=== PATIENT | male | born 1965 | race Caucasian/White ===

== ENCOUNTER 2017-03-22 17:58 | Observation (INO) ==
[2017-03-22] MEDS ORDERED: Naloxone 0.4 MG/ML INJ IVP PRN (21:10)
[2017-03-22] MEDS ORDERED: Acetaminophen 325 MG TABLET PO PRN (21:10)
[2017-03-22] MEDS ORDERED: Ondansetron 4 MG/2 ML VIAL IVP PRN (21:10)
[2017-03-22] MEDS ORDERED: Nitroglycerin 0.4 MG TAB.SUBL SL PRN (21:15)
--- NOTE | 2017-03-22 21:22 | Internal Med History&Physical ---
Date of Encounter: 03/22/17 Time of Encounter: 20:15 Assessment and Plan (1) Near syncope Current visit: Yes Status: Acute 1. Will proceed with ECHO Carotid Dopplers. 2. Monitor heart rhythm on telemetry. 3. Will hold some of his BP meds as his BP is on the low side. 4. Consult Cardiology given his history of arrhythmia and ablation. 5. Cycle troponins and monitor for signs of angina. (2) Chest pain Current visit: Yes Status: Acute 1. Patient currently CP free. 2. He had chest pain 3 days ago, was admitted 2 days ago, and signed out AMA. 3. Will proceed with work-up detailed above as long as he does not sign out AMA. Qualifiers: Chest pain type: precordial pain Qualified Code(s): R07.2 - Precordial pain (3) COPD (chronic obstructive pulmonary disease) Current visit: Yes Status: Chronic 1. Continue home meds as appropriate. 2. No current exacerbation. 3. Smoking cessation well advised. Qualifiers: COPD type: emphysema Emphysema type: unspecified Qualified Code(s): J43.9 - Emphysema, unspecified (4) DVT prophylaxis Current visit: Yes Status: Acute 1. Continue home Eliquis. Internal Medicine - H&P: HPI Chief complaint: near syncope; chest pain; trasnfer from [facility] Admitted From: Hospital to Hospital Transfer Plans for Post Hospital Care: Home History of present illness: Mr. Gray is a 52 year old male who presented to [facility] ER [facility] today with complaints of lightheadedness, dizziness, near syncope, and an episode of chest pain 2 days ago. Workup was pertinent for slight elevation of troponin at [facility], and he was subsequently transferred here to [place]. I reviewed his records from [facility] and then talked with patient and his . Upon my assessment of the patient, he denies any chest pain or heaviness. However, he and his confirmed that he has had some lightheadedness and dizziness. He recently lost his father about 3 weeks ago and has been having significant anxiety and panic attacks since. He also has a history of an arrhythmia and underwent radiofrequency catheter ablation in August of this year at [facility]. Of note, patient was just hospitalized here 2 days ago for chest pain and signed out AMA. Neither he nor his volunteered this information, and I found this out on medical record review. Presently, patient denies any dizziness or lightheadedness. He denies having any palpitations. However, given his history of arrhythmia and radiofrequency ablation, I worry about cardiac source of his syncope. Nonetheless, will check echo and carotid Dopplers as well as consulting cardiology for further guidance. Patient and voiced understanding and agreed to stay for further workup. Past Med Surg Social Fam HX - Past Medical History Attestation: Yes The following information was validated with the patient. Source: patient, old records reviewed, other (records review from [facility]) Medical history: arthritis, COPD, coronary artery disease, CVA, GERD, hypertension, kidney stones, myocardial infarction, renal disease Psychiatric history: anxiety, depression - Past Surgical History Surgical History: knee replacement, other (radiofrequency catheter ablation of arrhythmia) - Social History Smoking Status: Current every day smoker Smokeless Tobacco Status: No Alcohol use: none Drug use: none Current living situation: Home, With Family Activity Level: Independent ambulation - Family History Father Living Status: Hx Family Cardiac Disorders: No Hx Family Respiratory Disorders: No Hx Family Cancer: Yes Mother Adopted: No Family Member Ethnicity: Non- Living Status: Still Living Hx Family Cardiac Disorders: Yes (HTN, Hyperlipidemia) Hx Family Cancer: Yes (Breast CA) Internal Medicine - H&P: Meds Aspirin Enteric Coated [Aspirin EC] 81 mg PO DAILY 02/14/16 [History] Atorvastatin Calcium [Lipitor] 80 mg PO HS 02/14/16 [History] Budesonide/Formoterol 160/4.5 [Symbicort 160/4.5] 2 puff IH BID 02/14/16 [ History] Omeprazole [PriLOSEC] 20 mg PO DAILY 02/14/16 [History] Tiotropium [place] [Spiriva] 1 puff IH DAILY 02/14/16 [History] Trazodone HCl 200 mg PO HS 02/14/16 [History] diazePAM [Valium] 10 mg PO TID PRN 02/14/16 [History] Albuterol Sulfate [Ventolin Hfa] 2 puff IH Q4-6H PRN 03/20/17 [History] Apixaban [Eliquis] 5 mg PO BID 03/20/17 [History] Gabapentin [Neurontin] 1,200 mg PO TID 03/20/17 [History] Lisinopril [Zestril] 20 mg PO DAILY 03/20/17 [History] Nitroglycerin [Nitrostat] 0.4 mg SL Q5M PRN 03/20/17 [History] Tizanidine HCl 4 mg PO TID 03/20/17 [History] Topiramate [Topamax] 25 mg PO BID 03/20/17 [History] cloNIDine HCl [CloNIDine HCl] 0.1 mg PO TID 03/20/17 [History] Fluticasone/Vilanterol [Breo Ellipta 100-25 Mcg INH] 1 each IH DAILY 03/22/17 [ History] 3 Allergy/AdvReac Type Severity Reaction Status Date / Time ketorolac [From Toradol] Allergy Itching Verified 03/19/17 22:20 Sulfa (Sulfonamide Allergy Itching Verified 03/19/17 22:20 Antibiotics) tramadol Allergy Itching Verified 03/19/17 22:20 - Constitutional Constitutional: no chills, no fever(s), no night sweats - EENT Eyes: no blurry vision, no change in vision Ears: no ear pain, no tinnitus Nose, mouth and throat: no nasal congestion, no sinus pressure, no sore throat - Cardiovascular Cardiovascular ROS IM: chest pain, dyspnea, dyspnea on exertion, lightheadedness , palpitations, syncope (near syncope), no diaphoresis - Respiratory Respiratory: dyspnea, dyspnea on exertion, no cough, no hemoptysis, no chest congestion - Gastrointestinal Gastrointestinal: no abdominal pain, no diarrhea, no hematemesis, no hematochezia, no melena, no vomiting - Genitourinary Genitourinary ROS male: no dysuria, no flank pain, no hematuria - Musculoskeletal Musculoskeletal ROS IM: no arthralgias, no back pain - Integumentary Integumentary IM: no rash, no jaundice - Neurological Neurological ROS: dizziness, no focal weakness, no frequent falls, no headache(s ), no vertigo - Psychiatric Psychiatric: anxiety, panic attacks, no depression - Endocrine Endocrine IM: no polydipsia, no polyuria - Hematologic/Lymphatic Hematologic/Lymphatic: easy bruising - Allergic/Immunologic Allergic/Immunologic: wheezing, no GI upset with certain foods - Constitutional Vitals: Temp Pulse Resp BP Pulse Ox 97.9 F 82 16 120/73 93 03/22/17 20:23 03/22/17 20:23 03/22/17 20:23 03/22/17 20:23 03/22/17 20:23 General appearance: Present: A&O X 3, no acute distress, underweight - Head Head exam: Present: atraumatic, normal inspection - Expanded Head Exam Head exam expanded: Absent: abrasion, contusion, general tenderness - Eye Eye exam: Present: EOMI, PERRL. Absent: scleral icterus Pupils: Present: normal accommodation - ENT ENT exam: Present: mucous membranes dry, normal exam - Neck Neck exam general surgery: Present: full ROM, supple. Absent: lymphadenopathy, tenderness - Expanded Neck Exam Neck exam: Absent: carotid bruit - Respiratory Respiratory exam: Present: CTAB. Absent: chest wall tenderness, rales, respiratory distress, rhonchi, wheezes - Cardiovascular Cardiovascular exam: Present: RRR, +S1, +S2. Absent: diastolic murmur, systolic murmur - GI/Abdominal GI/Abdominal exam: Present: normal bowel sounds, soft. Absent: hepatomegaly, mass, splenomegaly, tenderness - Extremities Exam Extremities exam: Present: full ROM, warm, radial pulses palpable and symmetrical. Absent: calf tenderness, joint swelling, pedal edema - Back Exam Back exam: Present: normal inspection. Absent: CVA tenderness (L), CVA tenderness (R) - Neurological Exam Neurological exam: Present: alert, CN II-XII intact, oriented X3, no focal deficits - Psychiatric Psychiatric exam: Present: anxious. Absent: depressed - Skin Skin exam: Present: dry, warm. Absent: rash Internal Med - H&P Results - Labs Labs: I reviewed labs from [facility] and pertinent labs are below: WBC 8.4 Hgb 15.4 Hct 43.7 Plt 294 Sodium 140 Potassium 4.1 Chloride 104 CO2 27 BUN 16 Creatinine 1.29 Troponin 0.313 - EKG Data -: EKG Interpreted by Myself (sinus tachycardia; npo acute ST-T changes -- [facility] EKG)
[2017-03-22] MEDS: *HR* Morphine 2 MG/ML SYRINGE IVP PRN (22:10)
[2017-03-22] MEDS: 0.9 % Sodium Chloride 1,000 ML IVC SCH (22:17)
[2017-03-22] MEDS ORDERED: APIXABAN 5 MG TABLET PO ONE (22:38)
[2017-03-22] MEDS ORDERED: Gabapentin 400 MG CAPSULE PO ONE (22:41)
[2017-03-22] MEDS ORDERED: Topiramate 25 MG TABLET PO SCH (22:45)
[2017-03-22] MEDS: diazePAM 10 MG TABLET PO PRN (22:58)
[2017-03-22 23:27] LABS: Basophils % 0.3 %; Hematocrit 44.2 % (37.5-50.1); Hemoglobin 14.9 g/dL (12.9-16.9); Immature Granulocytes % 0.3 % (0-4); Lymphocytes # 0.5 K/mcL (0.6-4.6); Lymphocytes % 7.7 %; Mean Corpuscular HGB Conc 33.7 g/dL (31.6-35.5); Mean Corpuscular Hemoglobin 30.3 pg (28.0-33.3); Monocytes # 0.2 K/mcL (0.0-1.3); Monocytes % 2.8 %; Neutrophils # 5.4 K/mcL (1.6-8.9); Platelet Count 286 K/mcL (140-400); Red Blood Count 4.91 M/mcL (4.19-5.50); Segmented Neutrophils % 88.9 %
[2017-03-22 23:32] LABS: INR 1.2; Prothrombin Time 12.5 Seconds (9.4-12.1)
[2017-03-22 23:35] LABS: Activated Partial Thrombo Time 38.9 Seconds (26.0-36.0)
[2017-03-22 23:42] LABS: Alanine Aminotransferase 12 Units/L (0-55); Albumin 3.6 g/dL (3.5-5.0); Albumin/Globulin Ratio 1.1 (1.1-2.2); Alkaline Phosphatase 57 Units/L (38-126); Aspartate Amino Transferase 22 Units/L (5-34); BUN/Creatinine Ratio 16 (6-26); Bilirubin,Total 0.4 mg/dL (0.2-1.2); Blood Urea Nitrogen 18 mg/dL (8-26); Calcium 9.1 mg/dL (8.6-10.8); Carbon Dioxide 24 mEq/L (19-29); Chloride 104 mEq/L (98-109); Globulin 3.2 g/dL (2.4-3.5); Glucose 195 mg/dL (70-99); Magnesium 2.1 mg/dL (1.6-2.6); Osmolality,Calculated 295 (280-300); Potassium 4.1 mEq/L (3.5-4.5); Sodium 139 mEq/L (136-145); Total Protein 6.8 g/dL (6.0-8.3); eGFR For African Americans > 60 (> 60); eGFR For Non-African Americans > 60 (> 60)
[2017-03-23] MEDS: *HR* HYDROcodone/Acet 5/325 mg TABLET PO PRN ×4 (01:47→22:03)
[2017-03-23 04:35] LABS: Chol/HDL Ratio 3.7 (0-4.9)
[2017-03-23] MEDS: *HR* Morphine 2 MG/ML SYRINGE IVP PRN ×2 (06:22→19:48)
[2017-03-23] MEDS: Tiotropium 18 MCG inhalation IH SCH (08:30)
[2017-03-23] MEDS: Budesonide/Formoterol 160/4.5 MDI IH SCH ×2 (08:30→21:31)
[2017-03-23] MEDS: diazePAM 10 MG TABLET PO PRN ×3 (08:39→21:52)
[2017-03-23] MEDS: Gabapentin 400 MG CAPSULE PO SCH ×3 (08:40→21:51)
[2017-03-23] MEDS: APIXABAN 5 MG TABLET PO SCH ×2 (08:40→21:52)
[2017-03-23] MEDS: Topiramate 25 MG TABLET PO SCH ×2 (08:40→21:52)
[2017-03-23] MEDS: Aspirin Enteric Coated 81 MG Tablet PO SCH (08:40)
[2017-03-23] MEDS ORDERED: Topiramate 25 MG TABLET PO SCH (09:00)
[2017-03-23] MEDS: (Breo Ellipta 100-25 Mcg Inh) IH SCH (10:59)
[2017-03-23] MEDS: 0.9 % Sodium Chloride 1,000 ML IVC SCH (12:21)
--- NOTE | 2017-03-23 12:53 | Cardiology Consult Note ---
Date of Encounter: 03/23/17 Time of Encounter: 12:30 Assessment and Plan (1) Chest pain Current Visit: Yes Status: Acute Mild troponin elevation (x1) of unclear significance. Subsequent troponin negative x2. No ischemic ECG changes. Chest pain is atypical--reproducible upon exam. Patient reports "panic attacks" and anxiety due to passing of father and increased stress at home. Recent admission on 03/20/17 at [facility] (left AMA), [facility] ED admission on 03/21/17, and [facility] ED on 03/22 with transfer to [facility]. Recent negative nuclear stress test in November 2016 at [facility] and negative nuclear stress at [facility] January 2016. TTE January 2016 shows preserved LVEF with normal wall motion. Echocardiogram completed this AM, results pending. Anticipate sign-off if no significant findings on echo. No further cardiac testing warranted at this time. 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 No WPW pattern noted on ECG today. Discussion w patient/family: The assessment and plan as outlined above was discussed with the patient and/or family members who expressed understanding and agreement. All questions were answered. Thank you for involving us in the care of your patient. Please call with any questions. The patient will be discussed and reviewed with Dr. Linus Medina; changes to be made accordingly. History of Present Illness Consult date: 03/23/17 Requesting physician: Terrell Ricketts Consult reason: Chest pain, hx of ablation Chief complaint: Chest pain History of present illness: Mr. Gray is a 52 year old male with PMHx significant for WPW s/p RF ablation , COPD, chronic back pain, HTN, tobacco abuse, and PAF (Eliquis) who presented to [facility] as transfer from [facility] due to chest pain. Of note, multiple recent ED admissions at [facility] and outside hospitals for similar symptoms. Presents with multiple non-specific complaints over the past several days. Reports constant chest pain and "whole body pain." Chest discomfort is reproducible in nature. He notes that he has had multiple panic attacks due to passing of his father. Past Med Surg Social Fam HX - Past Medical History Attestation: Yes The following information was validated with the patient. Source: patient Medical history: arthritis, atrial fibrillation, COPD, coronary artery disease, CVA, GERD, hypertension, kidney stones, myocardial infarction, renal disease Psychiatric history: anxiety, depression - Past Surgical History Surgical History: knee replacement, other (radiofrequency catheter ablation of arrhythmia-WPW) - Social History Smoking Status: Current every day smoker Packs per day: 3-4 cigarettes/day Smokeless Tobacco Status: No Alcohol use: none Drug use: none - Family History Father Living Status: Hx Family Cardiac Disorders: No Hx Family Respiratory Disorders: No Hx Family Cancer: Yes Mother Adopted: No Family Member Ethnicity: Non- Living Status: Still Living Hx Family Cardiac Disorders: Yes (HTN, Hyperlipidemia) Hx Family Cancer: Yes (Breast CA) Medications and Allergies Aspirin Enteric Coated [Aspirin EC] 81 mg PO DAILY 02/14/16 [History] Atorvastatin Calcium [Lipitor] 80 mg PO HS 02/14/16 [History] Budesonide/Formoterol 160/4.5 [Symbicort 160/4.5] 2 puff IH BID 02/14/16 [ History] Omeprazole [PriLOSEC] 20 mg PO DAILY 02/14/16 [History] Tiotropium [place] [Spiriva] 1 puff IH DAILY 02/14/16 [History] Trazodone HCl 200 mg PO HS 02/14/16 [History] diazePAM [Valium] 10 mg PO TID PRN 02/14/16 [History] Albuterol Sulfate [Ventolin Hfa] 2 puff IH Q4-6H PRN 03/20/17 [History] Apixaban [Eliquis] 5 mg PO BID 03/20/17 [History] Gabapentin [Neurontin] 1,200 mg PO TID 03/20/17 [History] Lisinopril [Zestril] 20 mg PO DAILY 03/20/17 [History] Nitroglycerin [Nitrostat] 0.4 mg SL Q5M PRN 03/20/17 [History] Tizanidine HCl 4 mg PO TID 03/20/17 [History] Topiramate [Topamax] 25 mg PO BID 03/20/17 [History] cloNIDine HCl [CloNIDine HCl] 0.1 mg PO TID 03/20/17 [History] Fluticasone/Vilanterol [Breo Ellipta 100-25 Mcg INH] 1 each IH DAILY 03/22/17 [ History] 3 Allergy/AdvReac Type Severity Reaction Status Date / Time ketorolac [From Toradol] Allergy Itching Verified 03/19/17 22:20 Sulfa (Sulfonamide Allergy Itching Verified 03/19/17 22:20 Antibiotics) tramadol Allergy Itching Verified 03/19/17 22:20 All Systems Review: A 10-system review of systems was performed and is negative for pertinent findings except as documented above in the HPI. - Cardiovascular Cardiovascular: as per HPI Physical Examination Vital Signs, Last 4 Hours Temp Pulse Resp BP Pulse Ox 03/23/17 12:16 97.3 F L 66 16 151/99 91 General: Conversant, No Apparent Distress HEENT: Atraumatic, Normocephaly, Mucus Membranes Moist Cardiac: Reg Rate and Rhythm, Normal S1 and S2 Lungs: Normal Breath Sounds Neuro: Alert and responsive Abdomen: Soft Skin: No rashes noted on visualized skin Musculoskeletal: No Chest Wall Tenderness Extremities: No Edema, Normal Pulses Results 03/22/17 22:37 03/22/17 22:37 Lab Results 03/22/17 03/22/17 03/22/17 22:37 22:37 22:37 WBC 6.1 Hgb 14.9 Hct 44.2 Plt Count 286 INR 1.2 APTT 38.9 H Sodium 139 Potassium 4.1 Chloride 104 Carbon Dioxide 24 BUN 18 Creatinine 1.13 Glucose 195 H Calcium 9.1 Magnesium 2.1 Total Bilirubin 0.4 AST 22 ALT 12 Alkaline Phosphatase 57 Troponin I 03/22/17 03/23/17 03/23/17 22:37 03:38 08:49 WBC Hgb Hct Plt Count INR APTT Sodium Potassium Chloride Carbon Dioxide BUN Creatinine Glucose Calcium Magnesium Total Bilirubin AST ALT Alkaline Phosphatase Troponin I 0.06 H* 0.03 0.02 - Imaging and Cardiology Stress Test: report reviewed Echo: report reviewed - EKG Interpretation EKG results cardiology: personally reviewed Consult Discharge Plan - Plan Referrals: Ivone Roberto MD [Primary Care Provider] -
[2017-03-23] MEDS: Lisinopril 20 MG TABLET PO SCH (13:15)
[2017-03-23] MEDS ORDERED: Ondansetron 4 MG/2 ML VIAL IVP ONE (13:27)
[2017-03-23] MEDS ORDERED: Ibuprofen 800 MG TABLET PO ONE (13:28)
--- NOTE | 2017-03-23 16:37 | Internal Med Progress Note ---
Date of Encounter: 03/23/17 Time of Encounter: 16:00 - Assessment and plan (1) Near syncope Current Visit: Yes Status: Acute Assessment and plan: Echo completed. Carotids results pending. Pt denies chest pain or dizziness but reports global headache for 3 days. Cardiology has seen pt and recommend no further cardiac testing at this time. Troponins were negative, EKG was normal sinus without ischemic changes, patient had negative stress in Nov, 2016 at [facility] and also a negative stress here in January,. TTE in January, shows preserved ejection fraction with normal wall motion. Patient is having increased stress due to recent passing of father. We will monitor overnight. 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 Continue at home. (3) Hypertension Current Visit: Yes Status: Acute Assessment and plan: Chronic. Continue home medications. Monitor here. Hydralazine when necessary Qualifiers: Hypertension type: unspecified Qualified Code(s): I10 - Essential (primary ) hypertension (4) HLD (hyperlipidemia) Current Visit: Yes Status: Acute Assessment and plan: Chronic. Continue home medications. Qualifiers: Hyperlipidemia type: unspecified Qualified Code(s): E78.5 - Hyperlipidemia , unspecified (5) Chest pain Current Visit: Yes Status: Acute Assessment and plan: Plan as above for near syncope. Qualifiers: Chest pain type: precordial pain Qualified Code(s): R07.2 - Precordial pain (6) COPD (chronic obstructive pulmonary disease) Current Visit: Yes Status: Chronic Assessment and plan: No acute exacerbation. Lungs are clear and diminished throughout. Patient is still smoking. Continue home medications. Nebulizers as needed. Qualifiers: COPD type: emphysema Emphysema type: unspecified Qualified Code(s): J43.9 - Emphysema, unspecified (7) DVT prophylaxis Current Visit: Yes Status: Acute Assessment and plan: Pain patient is ambulatory. Observation status. (8) Headache Current Visit: Yes Status: Acute Assessment and plan: Patient has diffuse global headache that he has had for 3 days. He states that he got a CAT scan at [facility], I was unable to locate the results. Will repeat here. He reports nausea, no vision changes no photo or phonophobia. He is allergic to Toradol and tramadol. He has had Zofran and Benadryl and Motrin without relief, he has just been given a Fioricet. He will be offered and Imitrex later tonight if he does not really see freely from the Fioricet. Will wait on CT results. Qualifiers: Headache type: unspecified Headache chronicity pattern: acute headache Intractability: intractable Qualified Code(s): R51 - Headache - Time Spent With Patient less than 15 minutes - Subjective Interval history: Patient was seen and examined at 1600. He is resting quietly in a darkened room. He reports severe global headache they set for 3 days. He states that he had a head CT at [facility] yesterday, I was unable to find the results to the CT and giant stack of papers that was sent. I will send him for another. Pain medications that have been offered today have not relieved pain. He denies chest pain. He was admitted here 3 days ago, he signed out AMA because no one came into his room. He then went to [facility] for evaluation, possibly signed out AMA from [facility], as well. Then went to [facility] for evaluation, was sent back here. - Constitutional Vitals: Temp Pulse Resp BP Pulse Ox 98.0 F 77 16 117/69 92 03/23/17 15:06 03/23/17 15:06 03/23/17 15:06 03/23/17 15:06 03/23/17 15:06 General appearance: Present: A&O X 3, no acute distress, underweight - Head Head exam: Present: atraumatic, normal inspection, normocephalic - Eye Eye exam: Present: conjuntiva pink, sclera anicteric - Neck Neck exam general surgery: Present: normal inspection, supple, trachea midline. Absent: lymphadenopathy - Respiratory Respiratory exam: Present: CTAB. Absent: accessory muscle use, rales, rhonchi, wheezes - Cardiovascular Cardiovascular exam: Present: RRR, +S1, +S2. Absent: diastolic murmur, gallop, rubs, systolic murmur - GI/Abdominal GI/Abdominal exam: Present: normal bowel sounds, soft, no peritoneal signs. Absent: distended, hepatomegaly, tenderness - Extremities Exam Extremities exam: Present: warm, radial pulses palpable and symmetrical. Absent : calf tenderness, cyanotic, pedal edema - Neurological Exam Neurological exam: Present: alert, oriented X3, no focal deficits. Absent: pronater drift, facial droop, speech deficit - Skin Skin exam: Present: dry, intact, normal color, warm. Absent: rash Internal Medicine: Result - Labs CBC & Chem 7: 03/22/17 22:37 03/22/17 22:37 Labs: Short CBC 03/22/17 Range/Units 22:37 WBC 6.1 (4.3-11.1) K/mcL Hgb 14.9 (12.9-16.9) g/dL Hct 44.2 (37.5-50.1) % Plt Count 286 (140-400) K/mcL Neutrophils # 5.4 (1.6-8.9) K/mcL BMP 03/22/17 22:37 Sodium 139 Potassium 4.1 Chloride 104 Carbon Dioxide 24 BUN 18 Creatinine 1.13 Glucose 195 H Calcium 9.1 Cardiac Enzymes 03/22/17 03/23/17 03/23/17 Range/Units 22:37 03:38 08:49 Troponin I 0.06 H* 0.03 0.02 (0-0.03) ng/mL Liver Function 03/22/17 Range/Units 22:37 Total Bilirubin 0.4 (0.2-1.2) mg/dL AST 22 (5-34) Units/L ALT 12 (0-55) Units/L Alkaline Phosphatase 57 (38-126) Units/L Albumin 3.6 (3.5-5.0) g/dL - ABG Interpretation ABG results: PT/INR, D-dimer PT 12.5 Seconds (9.4-12.1) H 03/22/17 22:37 - Impressions Impressions Echocardiogram 03/22/17 21:10 Impressions: LVEF 60-65%. Normal LV chamber size, wall thickness and function. Normal left ventricular diastolic function. Atypical septal motion of unclear etiology. Normal right ventricular structure and function. No evidence of pulmonary hypertension. No significant valvular dysfunction. Left Ventricular Wall Motion: Rest Echo Findings All wall segments showed normal motion. Findings: Study Quality * Technically adequate exam. ECG Findings * Normal sinus rhythm. Left Ventricle * LVEF 60-65%. * Normal LV chamber size, wall thickness and function. * Normal left ventricular diastolic function. * Atypical septal motion of unclear etiology. Right Ventricle * Normal right ventricular structure and function. Left Atrium * Mildly dilated left atrium. Right Atrium * Normal right atrial size. Interatrial Septum * Interatrial septum not well evaluated. Aortic Valve * No aortic stenosis. * No aortic regurgitation. * Aortic valve not well visualized. Mitral Valve * Mildly thickened mitral valve leaflets. * Trace mitral regurgitation. * No mitral stenosis. Tricuspid Valve * Normal tricuspid valve structure and function. * Trace tricuspid regurgitation. * No evidence of pulmonary hypertension. Pulmonic Valve * Normal pulmonic valve structure and function. * No pulmonic regurgitation. Aorta * Normally sized aortic root. Pericardium * The pericardium appears normal. IVC * Normal IVC dimensions and inspiratory collapse. Pulmonary Artery * Normal visualized portions of the main pulmonary artery. Chest X-Ray 03/22/17 21:47 IMPRESSION: No acute abnormality detected. D/ / Brady Davenport MD / Brady Davenport MD Interpreting Provider: Brady Davenport MD Consult Discharge Plan - Plan Referrals: Ivone Roberto MD [Primary Care Provider] -
[2017-03-23] MEDS ORDERED: SUMAtriptan succinate 25 MG TABLET PO ONE (16:45)
[2017-03-23] MEDS ORDERED: Acetaminophen/Butalbital/CaffeineTABLET PO ONE (16:45)
--- NOTE | 2017-03-23 21:39 | Carotid Imaging Report ---
Carotid Duplex Patient Name:Iftikhar Gray Order Number:[id number] Procedure Date:03/23/2017 Date:1965Age:52 yrs Gender:Male Lt BP:123 / 75 mmHg Rt.BP:117 / 69 mmHgHeart Rate: Location:[facility] Room #: Director Speech And Hearing:Bob Montague, RD, RVT Referring MD:Terrell Ricketts MD Reading MD:Azael Salazar MD , FACS Primary Indications:Occlusion and stenosis of carotid artery without mention of cerebral infarction Risk Factors Yes/No Smoking Current Impressions: Findings: Bilateral carotid systems have nonstenotic plaque. Findings Carotid Duplex: Right: The right proximal common carotid artery has a PSV of 97 cm/s and a EDV of 33 cm/s. The right mid common carotid artery has a PSV of 89 cm/s and a EDV of 28 cm/s. The right distal common carotid artery has a PSV of 83 cm/s and a EDV of 29 cm/s. The right bifurcation has a PSV of 70 cm/s and a EDV of 25 cm/s. The right proximal internal carotid artery has a PSV of 97 cm/s and a EDV of 35 cm/s. There is smooth homogeneous plaque. The right mid internal carotid artery has a PSV of 107 cm/s and a EDV of 42 cm/s. There is smooth homogeneous plaque. The right distal internal carotid artery has a PSV of 114 cm/s and a EDV of 40 cm/s. There is smooth homogeneous plaque. The right eca has a PSV of 96 cm/s and a EDV of 26 cm/s. The right vertebral artery has a PSV of 53 cm/s and a EDV of 9 cm/s. Left: The left proximal common carotid artery has a PSV of 115 cm/s and a EDV of 31 cm/s. The left mid common carotid artery has a PSV of 121 cm/s and a EDV of 36 cm/s. The left distal common carotid artery has a PSV of 94 cm/s and a EDV of 31 cm/s. The left bifurcation has a PSV of 65 cm/s and a EDV of 22 cm/s. The left proximal internal carotid artery has a PSV of 83 cm/s and a EDV of 31 cm/s. There is smooth homogeneous plaque. The left mid internal carotid artery has a PSV of 97 cm/s and a EDV of 42 cm/s. There is smooth homogeneous plaque. The left distal internal carotid artery has a PSV of 97 cm/s and a EDV of 46 cm/s. There is smooth homogeneous plaque. The left eca has a PSV of 84 cm/s and a EDV of 20 cm/s. The left vertebral artery has a PSV of 86 cm/s and a EDV of 34 cm/s. Prior Study: No change compared to prior study dated: 12/05/2015. Carotid Results Right PSV EDV Assessment Proximal CCA 97 33 Normal Mid CCA 89 28 Normal Distal CCA 83 29 Normal Bifurcation 70 25 Normal Proximal ICA 97 35 Non Stenotic Plaque Mid ICA 107 42 Non Stenotic Plaque Distal ICA 114 40 Non Stenotic Plaque ECA 96 26 Normal Vertebral Artery 53 9 Normal Left PSV EDV Assessment Proximal CCA 115 31 Normal Mid CCA 121 36 Normal Distal CCA 94 31 Normal Bifurcation 65 22 Normal Proximal ICA 83 31 Non Stenotic Plaque Mid ICA 97 42 Non Stenotic Plaque Distal ICA 97 46 Non Stenotic Plaque ECA 84 20 Normal Vertebral Artery 86 34 Normal Ratio's Right ICA/CCA Ratio: 1.28 ICA/CCA Values: 114/89 Left ICA/CCA Ratio: 0.80 ICA/CCA Values: 97/121 Updated by Azael Salazar MD, FACS on 03/23/2017 9:33:48 PM Azael Salazar MD electronically signed on 03/23/2017 9:34:13 PM with status of Final
[2017-03-23] MEDS ORDERED: Topiramate 25 MG TABLET PO ONE (22:42)
[2017-03-24] MEDS: *HR* Morphine 2 MG/ML SYRINGE IVP PRN ×2 (02:13→06:58)
[2017-03-24] MEDS: Acetaminophen/Butalbital/CaffeineTABLET PO PRN ×2 (02:13→08:17)
[2017-03-24] MEDS: *HR* HYDROcodone/Acet 5/325 mg TABLET PO PRN ×3 (03:54→14:18)
[2017-03-24] MEDS: diazePAM 10 MG TABLET PO PRN ×2 (04:00→12:25)
[2017-03-24] MEDS: 0.9 % Sodium Chloride 1,000 ML IVC SCH (04:03)
[2017-03-24] MEDS: Budesonide/Formoterol 160/4.5 MDI IH SCH (07:40)
[2017-03-24] MEDS: Tiotropium 18 MCG inhalation IH SCH (07:40)
[2017-03-24] MEDS: Aspirin Enteric Coated 81 MG Tablet PO SCH (08:17)
[2017-03-24] MEDS: Topiramate 25 MG TABLET PO SCH (08:17)
[2017-03-24] MEDS: Gabapentin 400 MG CAPSULE PO SCH (08:17)
[2017-03-24] MEDS: Lisinopril 20 MG TABLET PO SCH (08:17)
[2017-03-24] MEDS: APIXABAN 5 MG TABLET PO SCH (08:17)
[2017-03-24] MEDS: (Breo Ellipta 100-25 Mcg Inh) IH SCH (08:17)
[2017-03-24 11:39] VITALS: BP 115/69
--- NOTE | 2017-03-24 14:31 | Discharge Summary ---
Date of Encounter: 03/24/17 Time of Encounter: 14:20 - Discharge Diagnosis (1) Near syncope Priority: Primary Status: Acute Comments: Patient denies any more episodes of dizziness, lightheadedness, or nursing to be. He has since denied chest pain since arrival. Patient initially has some slight elevation of troponin and was transferred here for evaluation. Troponin has returned to normal. Bilateral carotids have nonstenotic plaque. Echocardiogram shows LVEF of 60-65% atypical septal motion of unclear etiology, no significant valvular dysfunction. Head CT is negative for any acute changes. EKG was normal sinus rhythm with no ischemic EKG changes. Patient was here for admission on 91 and left AMA, he went to [facility] on 91, unclear. Left there AMA as well, is at [facility] ED on 91 and was transferred here. Patient had TTEN January, that showed preserved LVEF with normal wall motion. Cardiology evaluated patient and recommended no further cardiac testing. Patient reports recent panic attacks and anxiety due to passing of his father, as well as increased stress at home. Patient's perception of near syncope could be related to this. Patient has been okay here and will follow up with primary care for follow-up and for any needed medication adjustments. (2) Tobacco dependence Priority: Secondary Status: Chronic Comments: Patient states he is not ready to quit smoking at this time. (3) Hypertension Priority: Secondary Status: Chronic Comments: Chronic. Blood pressure has been well controlled in inpatient setting. Continue home medication regimen. Qualifiers: Hypertension type: unspecified Qualified Code(s): I10 - Essential (primary ) hypertension (4) HLD (hyperlipidemia) Priority: Secondary Status: Chronic Comments: Chronic. Lipid panel results are within normal limits. Continue statin. Qualifiers: Hyperlipidemia type: unspecified Qualified Code(s): E78.5 - Hyperlipidemia , unspecified (5) Chest pain Priority: Secondary Status: Acute Comments: Patient denies any chest pain to me. Per cardiology exam, pain was reproducible with palpation. He denies cough, shortness of breath. Cardiac exam is negative. Cardiology has signed off. Qualifiers: Chest pain type: precordial pain Qualified Code(s): R07.2 - Precordial pain (6) COPD (chronic obstructive pulmonary disease) Priority: Secondary Status: Chronic Comments: No acute exacerbation. Continue inhalers at home. Patient denies new cough above baseline. Lungs are clear and diminished throughout. Qualifiers: COPD type: emphysema Emphysema type: unspecified Qualified Code(s): J43.9 - Emphysema, unspecified (7) DVT prophylaxis Priority: Secondary Status: Acute Comments: Patient takes a la [employer]. (8) Headache Priority: Secondary Status: Acute Comments: Head CT negative. Patient does have some mild mucoperiosteal thickening of the ethmoid air sinuses. There is no facial or forehead tenderness with palpation. Headache was relieved with Fiorcet. Patient will follow with primary care for prescription. Qualifiers: Headache type: unspecified Headache chronicity pattern: acute headache Intractability: intractable Qualified Code(s): R51 - Headache - Discharge Medications Prescriptions: Acetaminophen/Butalbital/Caffe [Fioricet] 1 each PO DAILY PRN #4 tablet PRN Reason: Headache Home Medications: Aspirin Enteric Coated [Aspirin EC] 81 mg PO DAILY 02/14/16 [History] Atorvastatin Calcium [Lipitor] 80 mg PO HS 02/14/16 [History] Budesonide/Formoterol 160/4.5 [Symbicort 160/4.5] 2 puff IH BID 02/14/16 [ History] Omeprazole [PriLOSEC] 20 mg PO DAILY 02/14/16 [History] Tiotropium Freeman [Spiriva] 1 puff IH DAILY 02/14/16 [History] Trazodone HCl 200 mg PO HS 02/14/16 [History] diazePAM [Valium] 10 mg PO TID PRN 02/14/16 [History] Albuterol Sulfate [Ventolin Hfa] 2 puff IH Q4-6H PRN 03/20/17 [History] Apixaban [Eliquis] 5 mg PO BID 03/20/17 [History] Gabapentin [Neurontin] 1,200 mg PO TID 03/20/17 [History] Lisinopril [Zestril] 20 mg PO DAILY 03/20/17 [History] Nitroglycerin [Nitrostat] 0.4 mg SL Q5M PRN 03/20/17 [History] Tizanidine HCl 4 mg PO TID 03/20/17 [History] Topiramate [Topamax] 25 mg PO BID 03/20/17 [History] cloNIDine HCl [CloNIDine HCl] 0.1 mg PO TID 03/20/17 [History] Fluticasone/Vilanterol [Breo Ellipta 100-25 Mcg INH] 1 each IH DAILY 03/22/17 [ History] Acetaminophen/Butalbital/Caffe [Fioricet] 1 each PO DAILY PRN #4 tablet [Rx] Allergies/Adverse Reactions: 3 Allergy/AdvReac Type Severity Reaction Status Date / Time ketorolac [From Toradol] Allergy Itching Verified 03/19/17 22:20 Sulfa (Sulfonamide Allergy Itching Verified 03/19/17 22:20 Antibiotics) tramadol Allergy Itching Verified 03/19/17 22:20 Procedures/tests Complete & Pending: Procedures Performed prior 72 hours Category Date Time Status CT head/brain wo con [CT] Cat Scan 03/23/17 17:30 Draft ECG 12 lead ECG [ECG] AM 0600 Y 03/23/17 06:00 Ordered EV carotid duplex imaging BI Routine Y 03/22/17 21:10 Completed EV echocardiogram Routine Y 03/22/17 21:10 Completed Date of admission: 03/22/17 19:10 Primary care physician: Cat Suazo Consults: 03/22/17 21:14 Consult to Physician [CONS] Routine Consulting Provider: Linus Medina Reason for Consult: near syncope; chest pain; s/p radiofrequency ablation Call Completed: No Discharging clinician: Josephine Phelps Anticipated date of discharge: 03/24/17 - Patient Status Disposition: Home, Self-Care Condition: Good Functional capacity at discharge: independent ambulation Overall status at discharge: patient is back to baseline - Discharge Instructions Follow Up With: Ivone Roberto MD [Primary Care Provider] - Additional Instructions: Follow up with PCP in the next 7-10 days for follow up visit. Return to the ER as needed for any other problems or concerns or if your symptoms return or worsen. Resume your home medications and activities as tolerated. Follow up with your PCP to return to work. - Diet and Activity Activity: return to work once cleared by your PCP/specialist Diet: advance to your usual diet Hospital course: Mr. Gray is a 52 year old male with past medical history of CVA, right mario- anopsia, left-sided weakness, cervical arthritis with myelopathy with TIAs, COPD , anxiety, tobacco dependence, hypertension, hyperlipidemia, Dominci-Parkinson- White with ablation. presented to [facility] today with complaints of lightheadedness, dizziness, near syncope, and an episode of chest pain 2 days ago. Workup was pertinent for slight elevation of troponin at [facility], and he was subsequently transferred here to [place]. Patient denies any chest pain, however he did have a headache that was finally relieved with Fiorcet. Echocardiogram showed preserved function with no valvular dysfunction. Carotids showed nonstenotic plaque throughout. Head CT was negative for any acute intracranial abnormality. Patient was at [facility] in Nov, 2016 had a negative stress test, as well as a negative stress test here in January,. Patient was seen by cardiology and no further cardiac testing was warranted. Chest pain was reproducible on exam. He will need follow-up with cardiology in the office for follow-up. Patient has a history of WPW with ablation at [facility] in August,. No WPW pattern noted on EKG on arrival. Pt denies chest pain throughout visit and denies JAIME on assessment. Pt will be sent home with rx for Fiorcet for discharge for headache. He will follow up with PCP this week to return to work. Lipid panel wnl, labs and vitals are stable and within normal limits, Pt is ready for discharge. - Time Spent with Patient Total time spent providing and/or coordinating discharge services: Less than 30 minutes - Constitutional Vitals: Temp Pulse Resp BP Pulse Ox 98.0 F 67 17 115/69 92 03/24/17 11:38 03/24/17 11:38 03/24/17 11:38 03/24/17 11:38 03/24/17 11:38 General appearance: Present: cooperative, A&O X 3, no acute distress, underweight, answers questions appropriately - Head Head exam: Present: atraumatic, normal inspection, normocephalic - Eye Eye exam: Present: normal appearance, conjuntiva pink, sclera anicteric - Neck Neck exam general surgery: Present: supple, trachea midline. Absent: lymphadenopathy, tenderness - Respiratory Respiratory exam: Present: CTAB. Absent: accessory muscle use, rales, rhonchi, wheezes - Cardiovascular Cardiovascular exam: Present: RRR, +S1, +S2. Absent: diastolic murmur, gallop, rubs, systolic murmur - GI/Abdominal GI/Abdominal exam: Present: normal bowel sounds, soft, no peritoneal signs. Absent: distended, hepatomegaly, tenderness - Extremities Exam Extremities exam: Present: normal capillary refill, warm, radial pulses palpable and symmetrical. Absent: calf tenderness, cyanotic, pedal edema, tenderness - Neurological Exam Neurological exam: Present: oriented X3, no focal deficits. Absent: facial droop, speech deficit - Skin Skin exam: Present: dry, intact, warm. Absent: rash
== END 2017-03-24 16:01 | disposition home or self-care (01) ==
LOC: 3BNU
PROVIDERS: ADMIT Internal Medicine; ATTEND Registered Nurse

== ENCOUNTER 2017-04-01 19:17 | Inpatient (IN) ==
[2017-04-01 19:46] LABS: Basophils # 0.1 K/mcL (0.0-0.2); Basophils % 1.1 %; Eosinophils # 0.4 K/mcL (0.0-0.6); Eosinophils % 5.7 %; Hematocrit 36.6 % (37.5-50.1); Hemoglobin 12.3 g/dL (12.9-16.9); Immature Granulocytes % 0.4 % (0-4); Lymphocytes # 1.9 K/mcL (0.6-4.6); Lymphocytes % 26.3 %; Mean Corpuscular HGB Conc 33.6 g/dL (31.6-35.5); Mean Corpuscular Hemoglobin 30.7 pg (28.0-33.3); Mean Corpuscular Volume 91.3 fL (83.0-100.0); Mean Platelet Volume 9.5 fL (9.4-12.4); Monocytes # 0.5 K/mcL (0.0-1.3); Monocytes % 6.8 %; Neutrophils # 4.4 K/mcL (1.6-8.9); Platelet Count 343 K/mcL (140-400); Red Blood Count 4.01 M/mcL (4.19-5.50); Red Cell Distribution Width 13.4 % (11.5-14.5); Segmented Neutrophils % 59.7 %
[2017-04-01] MEDS ORDERED: Doxycycline 100 MG in 0.9 % Sodium Chloride Mini Bag 100 ML IVPB ONE (19:49)
[2017-04-01 19:51] LABS: INR 1.3; Prothrombin Time 13.6 Seconds (9.4-12.1)
[2017-04-01 19:54] LABS: Activated Partial Thrombo Time 35.2 Seconds (26.0-36.0)
[2017-04-01 19:58] LABS: BUN/Creatinine Ratio 16 (6-26); Blood Urea Nitrogen 17 mg/dL (8-26); Calcium 8.3 mg/dL (8.6-10.8); Carbon Dioxide 23 mEq/L (19-29); Chloride 113 mEq/L (98-109); Glucose 81 mg/dL (70-99); Osmolality,Calculated 299 (280-300); Potassium 3.6 mEq/L (3.5-4.5); Sodium 144 mEq/L (136-145); eGFR For African Americans > 60 (> 60); eGFR For Non-African Americans > 60 (> 60)
[2017-04-01] MEDS ORDERED: 0.9 % Sodium Chloride 1,000 ML IVC SCH (20:00)
--- NOTE | 2017-04-01 20:08 | Emergency Department Note ---
Disposition Clinical Impression: [place] spotted fever Disposition: Admitted As Inpatient Condition: Good Referrals: Ivone Roberto MD [Primary Care Provider] - Forms: ED Satisfaction Letter Time of Disposition: 22:32 Chest Pain HPI - General Chief Complaint: ED Chest Pain Stated Complaint: chest pains Time Seen by Provider: 04/01/17 19:20 Source: patient Mode of arrival: ambulatory Limitations: no limitations Vital Signs Reviewed: Yes Nursing Notes Reviewed: Yes - History of Present Illness HPI Narrative: 52 year old male who has an extensive back history over hte past few days. Patient is complaining of chest pain and shortness of breath. He states that in aug 2016 he had a stent placed and is currently on eliquis. Domitila states that since yesterday he was diagnosed with [place] spotted fever and inlufenza and that he was admitted to [facility] but he does not trust that hospital and left AMA. He was told that his cardiac muscles are weak and that he would need another stent. Patient states that he has midsternal chest pain with shortness of breath and subjective fevers, he is bradycardiac and hypotensive, and has generalized body aches. Severity scale (1-10): 9 - Related Data Home Medications Medication Instructions Recorded Confirmed Aspirin Enteric Coated [Aspirin EC] 81 mg PO DAILY 02/14/16 03/22/17 Atorvastatin Calcium [Lipitor] 80 mg PO HS 02/14/16 03/22/17 Budesonide/Formoterol 160/4.5 2 puff IH BID 02/14/16 03/22/17 [Symbicort 160/4.5] Omeprazole [PriLOSEC] 20 mg PO DAILY 02/14/16 03/22/17 Tiotropium [place] [Spiriva] 1 puff IH DAILY 02/14/16 03/22/17 Trazodone HCl 200 mg PO HS 02/14/16 03/22/17 diazePAM [Valium] 10 mg PO TID PRN 02/14/16 03/22/17 Albuterol Sulfate [Ventolin Hfa] 2 puff IH Q4-6H PRN 03/20/17 03/22/17 Apixaban [Eliquis] 5 mg PO BID 03/20/17 03/22/17 Gabapentin [Neurontin] 1,200 mg PO TID 03/20/17 03/22/17 Lisinopril [Zestril] 20 mg PO DAILY 03/20/17 03/22/17 Nitroglycerin [Nitrostat] 0.4 mg SL Q5M PRN 03/20/17 03/22/17 Tizanidine HCl 4 mg PO TID 03/20/17 03/22/17 Topiramate [Topamax] 25 mg PO BID 03/20/17 03/22/17 cloNIDine HCl [CloNIDine HCl] 0.1 mg PO TID 03/20/17 03/22/17 Fluticasone/Vilanterol [Breo 1 each IH DAILY 03/22/17 03/22/17 Ellipta 100-25 Mcg INH] Previous Rx's Medication Instructions Recorded Acetaminophen/Butalbital/Caffe 1 each PO DAILY PRN #4 tablet 03/24/17 [Fioricet] Allergies Allergy/AdvReac Type Severity Reaction Status Date / Time ketorolac [From Toradol] Allergy Itching Verified 03/19/17 22:20 Sulfa (Sulfonamide Allergy Itching Verified 03/19/17 22:20 Antibiotics) tramadol Allergy Itching Verified 03/19/17 22:20 Constitutional: Reports: fever, chills, weakness. Denies: weight change Eyes: Denies: eye pain, eye discharge, vision change ENT ED: Denies: ear pain, throat pain, dental pain, hearing loss, epistaxis, congestion, dysphagia Cardiovascular: Reports: chest pain. Denies: palpitations, dyspnea on exertion , edema, syncope Respiratory: Reports: dyspnea. Denies: cough, wheezes, hemoptysis, stridor Gastrointestinal: Denies: abdominal pain, nausea, vomiting, diarrhea, constipation, hematemesis, melena, hematochezia Genitourinary: Denies: urgency, dysuria, frequency, hematuria Musculoskeletal: Denies: back pain, neck pain, arthralgia, myalgia Integumentary: Denies: rash, abrasion, lesions Neurological: Denies: headache, weakness, numbness, paresthesias, confusion, abnormal gait, vertigo Psychiatric: Denies: anxiety, depression, suicidal thoughts, homicidal thoughts , auditory hallucinations, visual hallucinations Endocrine: Denies: fatigue Hematological/Lymphatic: Denies: easy bleeding, easy bruising Allergic/Immunologic: Denies: facial swelling, urticaria Chest Pain PMH - Past Medical History Medical history: Reports: arthritis, atrial fibrillation, COPD, coronary artery disease, CVA, GERD, hypertension, kidney stones, myocardial infarction, renal disease Surgical history: Reports: knee replacement, other (radiofrequency catheter ablation of arrhythmia-WPW) Psychiatric history: Reports: anxiety, depression - Social History Smoking Status: Current every day smoker Alcohol use: Reports: none Drug use: Reports: none Physical Exam - General Limitations: no limitations General appearance: alert, appears intoxicated, lethargic - Head Head exam: atraumatic, normocephalic, normal inspection - Eye Eye exam: Present: normal appearance, PERRL, EOMI - Expanded Eye Exam Pupils: Left: reactive - ENT ENT exam: normal exam, normal oropharynx, mucous membranes moist - Expanded ENT Exam External ear exam: Present: normal external inspection Mouth exam: Present: normal external inspection Teeth exam: Present: normal inspection Throat exam: Present: normal inspection - Neck Neck exam: Present: normal inspection, full ROM, trachea midline - Chest Chest inspection: Present: normal inspection, symmetric chest wall rise - Respiratory Respiratory exam: Present: normal lung sounds bilaterally - Cardiovascular Cardiovascular exam: Present: normal rhythm, bradycardia, normal heart sounds - Abdominal Exam Abdominal exam: Present: soft, Non-Tender. Absent: tenderness, distention, guarding, rebound, rigidity - Extremities Exam Extremities exam: Present: normal inspection, full ROM. Absent: tenderness, pedal edema - Expanded Upper Extremity Exam Shoulder exam: Present: normal inspection, full ROM Arm exam: Present: normal inspection, full ROM Elbow exam: Present: normal inspection, full ROM Forearm/Wrist exam: Present: normal inspection, full ROM Hand exam: Present: normal inspection, full ROM Vascular exam: Normal: capillary refill, radial pulse - Expanded Lower Extremity Exam Hip/Pelvis exam: Present: normal inspection, full ROM Upper leg exam: Present: normal inspection, full ROM Knee exam: Present: normal inspection, full ROM Lower leg exam: Present: normal inspection, full ROM Ankle exam: Present: normal inspection, full ROM Foot/toe exam: Present: normal inspection, full ROM Neurovascular/Tendon exam: Absent: motor deficit, sensory deficit, tendon deficit - Back Exam Back exam: Present: normal inspection, full ROM. Absent: tenderness - Neurological Exam Neurological exam: Present: alert, oriented X3 - Expanded Neurological Exam Patient oriented to: Present: person, place, time Coma Scale Eye Opening: Spontaneous Coma Scale Motor Response: Obeys Commands Coma Scale Verbal Response: Oriented Coma Scale Total: 15 - Psychiatric Psychiatric exam: Present: normal affect, normal mood - Skin Skin exam: Present: warm, dry, intact, normal color Course Course Narrative: we will do sepsis workup and rule out ACS. IVF and doxy for therapy and we will review old records from [facility] Consultation #1: discussed case with Dr. Doherty and she accepts patinet for admission. PAtient is agreeable to admission. Time: 22:26 Vital Signs Temperature 98.2 F 04/01/17 19:19 Pulse Rate 50 04/01/17 19:19 Respiratory Rate 22 04/01/17 19:19 Blood Pressure 95/59 04/01/17 19:19 O2 Sat by Pulse Oximetry 96 04/01/17 19:19 Temperature 98.2 F 04/01/17 19:19 Pulse Rate 48 04/01/17 22:15 Respiratory Rate 12 04/01/17 22:15 Blood Pressure 113/68 04/01/17 22:15 O2 Sat by Pulse Oximetry 100 04/01/17 22:15 Oxygen Delivery Oxygen Delivery Room Air Chest Pain - Medical Records Medical records reviewed: Yes I reviewed the patient's medical records. - Lab Data Lab results reviewed: Yes I reviewed the patient's lab results. Result diagrams: 04/01/17 19:31 04/01/17 19:31 Lab Results 04/01/17 04/01/17 04/01/17 Range/Units 19:31 19:31 19:31 WBC 7.3 (4.3-11.1) K/mcL RBC 4.01 L (4.19-5.50) M/mcL Hgb 12.3 L (12.9-16.9) g/dL Hct 36.6 L (37.5-50.1) % MCV 91.3 (83.0-100.0) fL MCH 30.7 (28.0-33.3) pg MCHC 33.6 (31.6-35.5) g/dL RDW 13.4 (11.5-14.5) % Plt Count 343 (140-400) K/mcL MPV 9.5 (9.4-12.4) fL Immature Gran % 0.4 (0-4) % Seg Neutrophils % 59.7 % Lymphocytes % 26.3 % Monocytes % 6.8 % Eosinophils % 5.7 % Basophils % 1.1 % Neutrophils # 4.4 (1.6-8.9) K/mcL Lymphocytes # 1.9 (0.6-4.6) K/mcL Monocytes # 0.5 (0.0-1.3) K/mcL Eosinophils # 0.4 (0.0-0.6) K/mcL Basophils # 0.1 (0.0-0.2) K/mcL PT 13.6 H (9.4-12.1) Seconds INR 1.3 APTT 35.2 (26.0-36.0) Seconds Sodium 144 (136-145) mEq/L Potassium 3.6 (3.5-4.5) mEq/L Chloride 113 H (98-109) mEq/L Carbon Dioxide 23 (19-29) mEq/L BUN 17 (8-26) mg/dL Creatinine 1.06 (0.72-1.25) mg/dL Est GFR ( Amer) > 60 (> 60) Est GFR (Non-Af Amer) > 60 (> 60) BUN/Creatinine Ratio 16 (6-26) Glucose 81 (70-99) mg/dL Calculated Osmolality 299 (280-300) Lactic Acid (0.5-2.2) mmol/L Calcium 8.3 L (8.6-10.8) mg/dL Phosphorus (2.3-4.7) mg/dL Magnesium (1.6-2.6) mg/dL Total Bilirubin (0.2-1.2) mg/dL Direct Bilirubin (0.0-0.5) mg/dL Indirect Bilirubin (0.0-1.2) mg/dL AST (5-34) Units/L ALT (0-55) Units/L Alkaline Phosphatase (38-126) Units/L Troponin I (0-0.03) ng/mL B-Natriuretic Peptide (0-100) pg/mL Serum Total Protein (6.0-8.3) g/dL Albumin (3.5-5.0) g/dL Globulin (2.4-3.5) g/dL Albumin/Globulin Ratio (1.1-2.2) Lipase (8-78) Units/L Urine Color (Yellow) Urine Clarity (Clear) Urine pH (5.0-8.0) pH Units Ur Specific [place] (1.010-1.025) Urine Protein (Neg-Trace) mg/dL Urine Glucose (UA) (Normal) mg/dL Urine Ketones (Negative) mg/dL Urine Blood (Negative) Urine Nitrite (Negative) Urine Bilirubin (Negative) Urine Urobilinogen (Normal) mg/dL Ur Leukocyte Esterase (Negative) Urine Microscopic RBC (0-3) per hpf Urine Microscopic WBC (0-3) per hpf Ur Squamous Epith Cells (None-Few) per lpf Urine Bacteria (None-Few) per hpf Hyaline Casts (None-Few) per lpf Ur Culture Indicated? (NO) 04/01/17 04/01/17 04/01/17 Range/Units 19:31 19:31 19:31 WBC (4.3-11.1) K/mcL RBC (4.19-5.50) M/mcL Hgb (12.9-16.9) g/dL Hct (37.5-50.1) % MCV (83.0-100.0) fL MCH (28.0-33.3) pg MCHC (31.6-35.5) g/dL RDW (11.5-14.5) % Plt Count (140-400) K/mcL MPV (9.4-12.4) fL Immature Gran % (0-4) % Seg Neutrophils % % Lymphocytes % % Monocytes % % Eosinophils % % Basophils % % Neutrophils # (1.6-8.9) K/mcL Lymphocytes # (0.6-4.6) K/mcL Monocytes # (0.0-1.3) K/mcL Eosinophils # (0.0-0.6) K/mcL Basophils # (0.0-0.2) K/mcL PT (9.4-12.1) Seconds INR APTT (26.0-36.0) Seconds Sodium (136-145) mEq/L Potassium (3.5-4.5) mEq/L Chloride (98-109) mEq/L Carbon Dioxide (19-29) mEq/L BUN (8-26) mg/dL Creatinine (0.72-1.25) mg/dL Est GFR ( Amer) (> 60) Est GFR (Non-Af Amer) (> 60) BUN/Creatinine Ratio (6-26) Glucose (70-99) mg/dL Calculated Osmolality (280-300) Lactic Acid (0.5-2.2) mmol/L Calcium (8.6-10.8) mg/dL Phosphorus 3.0 (2.3-4.7) mg/dL Magnesium 1.8 (1.6-2.6) mg/dL Total Bilirubin 0.3 (0.2-1.2) mg/dL Direct Bilirubin 0.1 (0.0-0.5) mg/dL Indirect Bilirubin 0.2 (0.0-1.2) mg/dL AST 12 (5-34) Units/L ALT 9 (0-55) Units/L Alkaline Phosphatase 51 (38-126) Units/L Troponin I 0.00 (0-0.03) ng/mL B-Natriuretic Peptide 34 (0-100) pg/mL Serum Total Protein 5.7 L (6.0-8.3) g/dL Albumin 3.1 L (3.5-5.0) g/dL Globulin 2.6 (2.4-3.5) g/dL Albumin/Globulin Ratio 1.2 (1.1-2.2) Lipase 19 (8-78) Units/L Urine Color (Yellow) Urine Clarity (Clear) Urine pH (5.0-8.0) pH Units Ur Specific [place] (1.010-1.025) Urine Protein (Neg-Trace) mg/dL Urine Glucose (UA) (Normal) mg/dL Urine Ketones (Negative) mg/dL Urine Blood (Negative) Urine Nitrite (Negative) Urine Bilirubin (Negative) Urine Urobilinogen (Normal) mg/dL Ur Leukocyte Esterase (Negative) Urine Microscopic RBC (0-3) per hpf Urine Microscopic WBC (0-3) per hpf Ur Squamous Epith Cells (None-Few) per lpf Urine Bacteria (None-Few) per hpf Hyaline Casts (None-Few) per lpf Ur Culture Indicated? (NO) 04/01/17 04/01/17 04/01/17 Range/Units 20:47 20:54 21:52 WBC (4.3-11.1) K/mcL RBC (4.19-5.50) M/mcL Hgb (12.9-16.9) g/dL Hct (37.5-50.1) % MCV (83.0-100.0) fL MCH (28.0-33.3) pg MCHC (31.6-35.5) g/dL RDW (11.5-14.5) % Plt Count (140-400) K/mcL MPV (9.4-12.4) fL Immature Gran % (0-4) % Seg Neutrophils % % Lymphocytes % % Monocytes % % Eosinophils % % Basophils % % Neutrophils # (1.6-8.9) K/mcL Lymphocytes # (0.6-4.6) K/mcL Monocytes # (0.0-1.3) K/mcL Eosinophils # (0.0-0.6) K/mcL Basophils # (0.0-0.2) K/mcL PT (9.4-12.1) Seconds INR APTT (26.0-36.0) Seconds Sodium (136-145) mEq/L Potassium (3.5-4.5) mEq/L Chloride (98-109) mEq/L Carbon Dioxide (19-29) mEq/L BUN (8-26) mg/dL Creatinine (0.72-1.25) mg/dL Est GFR ( Amer) (> 60) Est GFR (Non-Af Amer) (> 60) BUN/Creatinine Ratio (6-26) Glucose (70-99) mg/dL Calculated Osmolality (280-300) Lactic Acid 0.7 0.6 (0.5-2.2) mmol/L Calcium (8.6-10.8) mg/dL Phosphorus (2.3-4.7) mg/dL Magnesium (1.6-2.6) mg/dL Total Bilirubin (0.2-1.2) mg/dL Direct Bilirubin (0.0-0.5) mg/dL Indirect Bilirubin (0.0-1.2) mg/dL AST (5-34) Units/L ALT (0-55) Units/L Alkaline Phosphatase (38-126) Units/L Troponin I (0-0.03) ng/mL B-Natriuretic Peptide (0-100) pg/mL Serum Total Protein (6.0-8.3) g/dL Albumin (3.5-5.0) g/dL Globulin (2.4-3.5) g/dL Albumin/Globulin Ratio (1.1-2.2) Lipase (8-78) Units/L Urine Color Yellow (Yellow) Urine Clarity Cloudy A (Clear) Urine pH 7.0 (5.0-8.0) pH Units Ur Specific [place] > 1.030 H (1.010-1.025) Urine Protein Negative (Neg-Trace) mg/dL Urine Glucose (UA) Normal (Normal) mg/dL Urine Ketones Negative (Negative) mg/dL Urine Blood Negative (Negative) Urine Nitrite Negative (Negative) Urine Bilirubin Negative (Negative) Urine Urobilinogen Normal (Normal) mg/dL Ur Leukocyte Esterase Negative (Negative) Urine Microscopic RBC 0-3 (0-3) per hpf Urine Microscopic WBC 0-3 (0-3) per hpf Ur Squamous Epith Cells Moderate H (None-Few) per lpf Urine Bacteria None Seen (None-Few) per hpf Hyaline Casts None Seen (None-Few) per lpf Ur Culture Indicated? NO (NO) - Radiology Data Radiology results reviewed: Yes I reviewed the patient's radiology results. - EKG Data EKG attestation: Yes I reviewed and interpreted this EKG. EKG results narrative: sinus jeremiah with rate of 50. PVCs. babar repol. change from 03/15/17. NO STEMI. 1919
[2017-04-01 20:12] LABS: Albumin 3.1 g/dL (3.5-5.0); Albumin/Globulin Ratio 1.2 (1.1-2.2); Bilirubin,Direct 0.1 mg/dL (0.0-0.5); Bilirubin,Indirect 0.2 mg/dL (0.0-1.2); Bilirubin,Total 0.3 mg/dL (0.2-1.2); Globulin 2.6 g/dL (2.4-3.5); Magnesium 1.8 mg/dL (1.6-2.6); Total Protein 5.7 g/dL (6.0-8.3)
[2017-04-01 21:04] LABS: Bilirubin,Urine Negative (Negative); Blood,Urine Negative (Negative); Clarity,Urine Cloudy (Clear); Color,Urine Yellow (Yellow); Glucose,Urine (UA) Normal (Normal); Ketones,Urine Negative (Negative); Leukocyte Esterase,Urine Negative (Negative); Nitrite,Urine Negative (Negative); Protein,Urine Negative (Neg-Trace); Specific Gravity,Urine > 1.030 (1.010-1.025); Urobilinogen,Urine Normal (Normal)
[2017-04-01 21:06] LABS: Bacteria,Urine None Seen per hpf (None-Few); Hyaline Casts,Urine None Seen per lpf (None-Few); RBC,Urine 0-3 per hpf (0-3); Squamous Epithelial Cell,Urine Moderate per lpf (None-Few); WBC,Urine 0-3 per hpf (0-3)
[2017-04-01] MEDS ORDERED: Naloxone 0.4 MG/ML INJ IVP PRN (23:25)
[2017-04-01] MEDS ORDERED: Acetaminophen 325 MG TABLET PO PRN (23:25)
[2017-04-01] MEDS ORDERED: Ondansetron 4 MG/2 ML VIAL IVP PRN (23:25)
[2017-04-01] MEDS ORDERED: Nitroglycerin 0.4 MG TAB.SUBL SL PRN (23:34)
--- NOTE | 2017-04-01 23:57 | Internal Med History&Physical ---
<Suma Turner M - Last Filed: 04/01/17 23:53> Date of Encounter: 04/01/17 Time of Encounter: 23:53 Assessment and Plan (1) Pericarditis Current visit: Yes Status: Acute Patient presented with chest pain, body aches. He was reportedly diagnosed with [place] spotted fever recently at [facility]. EKG shows diffuse ST elevations, which are consistent with EKG from [facility] yesterday. Troponin negative. This is consistent with pericarditis. Stat echocardiogram Aspirin 325mg BID cardiology consulted. Qualifiers: Pericarditis type: infectious Infectious pericarditis etiology: unspecified Chronicity: acute Qualified Code(s): I30.1 - Infective pericarditis (2) Bradycardia Current visit: Yes Status: Acute Patient is bradycardic with HR 40s-50s, he has a history of WPW s/p ablation, CAD s/p stent placement. He is currently diagnosed with pericarditis and [place] spotted Fever. Bradycardia likely related to RMSF and pericarditis. Continuous clinical research monitor serial troponins stat echocardiogram. (3) Tobacco dependence Current visit: Yes Status: Chronic Smoking cessation education and nicotine patch ordered. (4) [place] spotted fever Current visit: Yes Status: Acute Patient reportedly recently diagnosed with [place] spotted fever at [facility]. He is reporting body aches and chest pain. RMSF Ag and Ab ordered. Doxycycline 100mg IVPB BID IV fluids 0.9NS at 100mL/hr (5) COPD (chronic obstructive pulmonary disease) Current visit: Yes Status: Chronic Denies increased coughing. Not in exacerbation. Continue home medications. Qualifiers: COPD type: emphysema Emphysema type: unspecified Qualified Code(s): J43.9 - Emphysema, unspecified (6) DVT prophylaxis Current visit: Yes Status: Acute anti-embolic stockings patient on Eliquis, additional pharmacologic prophylaxis is not warranted. Internal Medicine - H&P: HPI Chief complaint: chest pain, body aches Admitted From: Emergency Dept Plans for Post Hospital Care: Home History of present illness: Mr. Gray is a 52 year old male with hypertension, COPD, history of CVA, coronary artery disease status post stent placement, WPW status post ablation presented to the emergency department today with complaints of chest pain, shortness of breath, and body aches. Patient reportedly has been told ulcer couple of times and left AMA this morning. He was told he needed a cardiac catheter and that is when he left. He reports he has been having body aches, shortness of breath and chest pain on and off for several weeks, feeling worse the last couple days. His reports he noted his blood pressure dropped today and that is why she took him into the ER. He also reports that also told him he had [place] spotted fever. He reports occasional lightheadedness and headache. He denies any palpitations. Denies nausea, vomiting abdominal pain or diarrhea. Evaluation in the emergency department included an EKG which did show ST elevations were unchanged from also EKG yesterday. Troponin was negative at 0.00. The ST elevations were more consistent with pericarditis related to [place] spotted fever rather than an acute NC. BNP was negative at 34. Lactate was normal at 0.7. UA was negative for infection. Chest x-ray showed no acute process. CTA showed no PE, no acute cardiopulmonary disease. Blood cultures were drawn and sent, he was given 2 L fluid bolus and started on doxycycline in the emergency department. On exam, patient is alert and oriented, in no acute distress. Heart had regular rhythm with bradycardic rate. Lungs are clear bilaterally to auscultation. Abdomen was soft, nontender, positive bowel sounds. No peripheral edema. Past Med Surg Social Fam HX - Past Medical History Medical history: arthritis, atrial fibrillation, COPD, coronary artery disease, CVA, GERD, hypertension, kidney stones, myocardial infarction, renal disease Psychiatric history: anxiety, depression - Past Surgical History Surgical History: knee replacement, other (radiofrequency catheter ablation of arrhythmia-WPW) - Social History Smoking Status: Current every day smoker Smokeless Tobacco Status: No Alcohol use: none Drug use: none - Family History Father Living Status: Hx Family Cardiac Disorders: No Hx Family Respiratory Disorders: No Hx Family Cancer: Yes Mother Adopted: No Family Member Ethnicity: Non- Living Status: Still Living Hx Family Cardiac Disorders: Yes (HTN, Hyperlipidemia) Hx Family Cancer: Yes (Breast CA) Internal Medicine - H&P: Meds Aspirin Enteric Coated [Aspirin EC] 81 mg PO DAILY 02/14/16 [History] Atorvastatin Calcium [Lipitor] 80 mg PO HS 02/14/16 [History] Budesonide/Formoterol 160/4.5 [Symbicort 160/4.5] 2 puff IH BID 02/14/16 [ History] Omeprazole [PriLOSEC] 20 mg PO DAILY 02/14/16 [History] Tiotropium [place] [Spiriva] 1 puff IH DAILY 02/14/16 [History] Trazodone HCl 200 mg PO HS 02/14/16 [History] diazePAM [Valium] 10 mg PO TID PRN 02/14/16 [History] Albuterol Sulfate [Ventolin Hfa] 2 puff IH Q4-6H PRN 03/20/17 [History] Apixaban [Eliquis] 5 mg PO BID 03/20/17 [History] Gabapentin [Neurontin] 1,200 mg PO TID 03/20/17 [History] Lisinopril [Zestril] 20 mg PO DAILY 03/20/17 [History] Nitroglycerin [Nitrostat] 0.4 mg SL Q5M PRN 03/20/17 [History] Tizanidine HCl 4 mg PO TID 03/20/17 [History] Topiramate [Topamax] 25 mg PO BID 03/20/17 [History] cloNIDine HCl [CloNIDine HCl] 0.1 mg PO TID 03/20/17 [History] Fluticasone/Vilanterol [Breo Ellipta 100-25 Mcg INH] 1 each IH DAILY 03/22/17 [ History] Acetaminophen/Butalbital/Caffe [Fioricet] 1 each PO DAILY PRN #4 tablet [Rx] 3 Allergy/AdvReac Type Severity Reaction Status Date / Time ketorolac [From Toradol] Allergy Itching Verified 03/19/17 22:20 Sulfa (Sulfonamide Allergy Itching Verified 03/19/17 22:20 Antibiotics) tramadol Allergy Itching Verified 03/19/17 22:20 All Systems PM: A 10-system review of systems was performed and is negative for pertinent findings except as documented above in the HPI. - Constitutional Constitutional: chills, malaise, no fever(s), no night sweats - EENT Eyes: no change in vision, no discharge, no pain, no photophobia Ears: no ear discharge, no ear pain, no tinnitus Nose, mouth and throat: no dysphagia, no nasal discharge, no neck pain, no sore throat - Cardiovascular Cardiovascular ROS IM: chest pain, dyspnea, dyspnea on exertion, lightheadedness , no diaphoresis, no palpitations, no syncope - Respiratory Respiratory: no cough, no dyspnea, no wheezing, no excessive phlegm production - Gastrointestinal Gastrointestinal: no abdominal pain, no diarrhea, no hematemesis, no hematochezia, no melena, no nausea, no vomiting - Musculoskeletal Musculoskeletal ROS IM: no numbness, no tingling - Integumentary Integumentary IM: no rash, no unusual bruising - Neurological Neurological ROS: no confusion, no convulsions, no focal weakness, no numbness, no tingling, no tremor(s) - Hematologic/Lymphatic Hematologic/Lymphatic: no easy bruising - Constitutional Vitals: Temp Pulse Resp BP Pulse Ox 98.2 F 50 20 128/73 94 04/01/17 19:19 04/01/17 22:53 04/01/17 23:38 04/01/17 23:38 04/01/17 22:53 General appearance: Present: A&O X 3, no acute distress - Head Head exam: Present: atraumatic, normocephalic - Eye Eye exam: Present: PERRL, conjuntiva pink, sclera anicteric Pupils: Present: PERRL - Neck Neck exam general surgery: Present: supple, trachea midline. Absent: lymphadenopathy - Respiratory Respiratory exam: Present: CTAB. Absent: accessory muscle use, rales, rhonchi, wheezes - Cardiovascular Cardiovascular exam: Present: bradycardia, RRR, +S1, +S2. Absent: diastolic murmur, gallop, rubs, systolic murmur - GI/Abdominal GI/Abdominal exam: Present: normal bowel sounds, soft, no peritoneal signs. Absent: distended, tenderness - Extremities Exam Extremities exam: Present: warm, radial pulses palpable and symmetrical. Absent : calf tenderness, cyanotic, pedal edema - Neurological Exam Neurological exam: Present: CN II-XII intact, oriented X3, no focal deficits. Absent: pronater drift, facial droop, speech deficit - Skin Skin exam: Present: dry, intact Internal Med - H&P Results - Labs CBC & Chem 7: 04/01/17 19:31 04/01/17 19:31 Labs: All Lab Results (24 Hours) 04/01/17 04/01/1704/01/17 Range/Units 19:31 19:31 19:31 WBC 7.3 (4.3-11.1) K/mcL RBC 4.01 L (4.19-5.50) M/mcL Hgb 12.3 L (12.9-16.9) g/dL Hct 36.6 L (37.5-50.1) % MCV 91.3 (83.0-100.0) fL MCH 30.7 (28.0-33.3) pg MCHC 33.6 (31.6-35.5) g/dL RDW 13.4 (11.5-14.5) % Plt Count 343 (140-400) K/mcL MPV 9.5 (9.4-12.4) fL Immature Gran % 0.4 (0-4) % Seg Neutrophils % 59.7 % Lymphocytes % 26.3 % Monocytes % 6.8 % Eosinophils % 5.7 % Basophils % 1.1 % Neutrophils # 4.4 (1.6-8.9) K/mcL Lymphocytes # 1.9 (0.6-4.6) K/mcL Monocytes # 0.5 (0.0-1.3) K/mcL Eosinophils # 0.4 (0.0-0.6) K/mcL Basophils # 0.1 (0.0-0.2) K/mcL PT 13.6 H (9.4-12.1) Seconds INR 1.3 APTT 35.2 (26.0-36.0) Seconds Sodium 144 (136-145) mEq/L Potassium 3.6 (3.5-4.5) mEq/L Chloride 113 H (98-109) mEq/L Carbon Dioxide 23 (19-29) mEq/L BUN 17 (8-26) mg/dL Creatinine 1.06 (0.72-1.25) mg/dL Est GFR ( Amer) > 60 (> 60) Est GFR (Non-Af Amer) > 60 (> 60) BUN/Creatinine Ratio 16 (6-26) Glucose 81 (70-99) mg/dL Calculated Osmolality 299 (280-300) Lactic Acid (0.5-2.2) mmol/L Calcium 8.3 L (8.6-10.8) mg/dL Phosphorus (2.3-4.7) mg/dL Magnesium (1.6-2.6) mg/dL Total Bilirubin (0.2-1.2) mg/dL Direct Bilirubin (0.0-0.5) mg/dL Indirect Bilirubin (0.0-1.2) mg/dL AST (5-34) Units/L ALT (0-55) Units/L Alkaline Phosphatase (38-126) Units/L Troponin I (0-0.03) ng/mL B-Natriuretic Peptide (0-100) pg/mL Serum Total Protein (6.0-8.3) g/dL Albumin (3.5-5.0) g/dL Globulin (2.4-3.5) g/dL Albumin/Globulin Ratio (1.1-2.2) Lipase (8-78) Units/L Urine Color (Yellow) Urine Clarity (Clear) Urine pH (5.0-8.0) pH Units Ur Specific [place] (1.010-1.025) Urine Protein (Neg-Trace) mg/dL Urine Glucose (UA) (Normal) mg/dL Urine Ketones (Negative) mg/dL Urine Blood (Negative) Urine Nitrite (Negative) Urine Bilirubin (Negative) Urine Urobilinogen (Normal) mg/dL Ur Leukocyte Esterase (Negative) Urine Microscopic RBC (0-3) per hpf Urine Microscopic WBC (0-3) per hpf Ur Squamous Epith Cells (None-Few) per lpf Urine Bacteria (None-Few) per hpf Hyaline Casts (None-Few) per lpf Ur Culture Indicated? (NO) 04/01/17 04/01/17 04/01/17 Range/Units 19:31 19:31 19:31 WBC (4.3-11.1) K/mcL RBC (4.19-5.50) M/mcL Hgb (12.9-16.9) g/dL Hct (37.5-50.1) % MCV (83.0-100.0) fL MCH (28.0-33.3) pg MCHC (31.6-35.5) g/dL RDW (11.5-14.5) % Plt Count (140-400) K/mcL MPV (9.4-12.4) fL Immature Gran % (0-4) % Seg Neutrophils % % Lymphocytes % % Monocytes % % Eosinophils % % Basophils % % Neutrophils # (1.6-8.9) K/mcL Lymphocytes # (0.6-4.6) K/mcL Monocytes # (0.0-1.3) K/mcL Eosinophils # (0.0-0.6) K/mcL Basophils # (0.0-0.2) K/mcL PT (9.4-12.1) Seconds INR APTT (26.0-36.0) Seconds Sodium (136-145) mEq/L Potassium (3.5-4.5) mEq/L Chloride (98-109) mEq/L Carbon Dioxide (19-29) mEq/L BUN (8-26) mg/dL Creatinine (0.72-1.25) mg/dL Est GFR ( Amer) (> 60) Est GFR (Non-Af Amer) (> 60) BUN/Creatinine Ratio (6-26) Glucose (70-99) mg/dL Calculated Osmolality (280-300) Lactic Acid (0.5-2.2) mmol/L Calcium (8.6-10.8) mg/dL Phosphorus 3.0 (2.3-4.7) mg/dL Magnesium 1.8 (1.6-2.6) mg/dL Total Bilirubin 0.3 (0.2-1.2) mg/dL Direct Bilirubin 0.1 (0.0-0.5) mg/dL Indirect Bilirubin 0.2 (0.0-1.2) mg/dL AST 12 (5-34) Units/L ALT 9 (0-55) Units/L Alkaline Phosphatase 51 (38-126) Units/L Troponin I 0.00 (0-0.03) ng/mL B-Natriuretic Peptide 34 (0-100) pg/mL Serum Total Protein 5.7 L (6.0-8.3) g/dL Albumin 3.1 L (3.5-5.0) g/dL Globulin 2.6 (2.4-3.5) g/dL Albumin/Globulin Ratio 1.2 (1.1-2.2) Lipase 19 (8-78) Units/L Urine Color (Yellow) Urine Clarity (Clear) Urine pH (5.0-8.0) pH Units Ur Specific [place] (1.010-1.025) Urine Protein (Neg-Trace) mg/dL Urine Glucose (UA) (Normal) mg/dL Urine Ketones (Negative) mg/dL Urine Blood (Negative) Urine Nitrite (Negative) Urine Bilirubin (Negative) Urine Urobilinogen (Normal) mg/dL Ur Leukocyte Esterase (Negative) Urine Microscopic RBC (0-3) per hpf Urine Microscopic WBC (0-3) per hpf Ur Squamous Epith Cells (None-Few) per lpf Urine Bacteria (None-Few) per hpf Hyaline Casts (None-Few) per lpf Ur Culture Indicated? (NO) 04/01/17 04/01/17 04/01/17 Range/Units 20:47 20:54 21:52 WBC (4.3-11.1) K/mcL RBC (4.19-5.50) M/mcL Hgb (12.9-16.9) g/dL Hct (37.5-50.1) % MCV (83.0-100.0) fL MCH (28.0-33.3) pg MCHC (31.6-35.5) g/dL RDW (11.5-14.5) % Plt Count (140-400) K/mcL MPV (9.4-12.4) fL Immature Gran % (0-4) % Seg Neutrophils % % Lymphocytes % % Monocytes % % Eosinophils % % Basophils % % Neutrophils # (1.6-8.9) K/mcL Lymphocytes # (0.6-4.6) K/mcL Monocytes # (0.0-1.3) K/mcL Eosinophils # (0.0-0.6) K/mcL Basophils # (0.0-0.2) K/mcL PT (9.4-12.1) Seconds INR APTT (26.0-36.0) Seconds Sodium (136-145) mEq/L Potassium (3.5-4.5) mEq/L Chloride (98-109) mEq/L Carbon Dioxide (19-29) mEq/L BUN (8-26) mg/dL Creatinine (0.72-1.25) mg/dL Est GFR ( Amer) (> 60) Est GFR (Non-Af Amer) (> 60) BUN/Creatinine Ratio (6-26) Glucose (70-99) mg/dL Calculated Osmolality (280-300) Lactic Acid 0.7 0.6 (0.5-2.2) mmol/L Calcium (8.6-10.8) mg/dL Phosphorus (2.3-4.7) mg/dL Magnesium (1.6-2.6) mg/dL Total Bilirubin (0.2-1.2) mg/dL Direct Bilirubin (0.0-0.5) mg/dL Indirect Bilirubin (0.0-1.2) mg/dL AST (5-34) Units/L ALT (0-55) Units/L Alkaline Phosphatase (38-126) Units/L Troponin I (0-0.03) ng/mL B-Natriuretic Peptide (0-100) pg/mL Serum Total Protein (6.0-8.3) g/dL Albumin (3.5-5.0) g/dL Globulin (2.4-3.5) g/dL Albumin/Globulin Ratio (1.1-2.2) Lipase (8-78) Units/L Urine Color Yellow (Yellow) Urine Clarity Cloudy A (Clear) Urine pH 7.0 (5.0-8.0) pH Units Ur Specific [place] > 1.030 H (1.010-1.025) Urine Protein Negative (Neg-Trace) mg/dL Urine Glucose (UA) Normal (Normal) mg/dL Urine Ketones Negative (Negative) mg/dL Urine Blood Negative (Negative) Urine Nitrite Negative (Negative) Urine Bilirubin Negative (Negative) Urine Urobilinogen Normal (Normal) mg/dL Ur Leukocyte Esterase Negative (Negative) Urine Microscopic RBC 0-3 (0-3) per hpf Urine Microscopic WBC 0-3 (0-3) per hpf Ur Squamous Epith Cells Moderate H (None-Few) per lpf Urine Bacteria None Seen (None-Few) per hpf Hyaline Casts None Seen (None-Few) per lpf Ur Culture Indicated? NO (NO) - Diagnostic Studies Chest x-ray Additional comments: Chest X-Ray 04/01/17 19:21 IMPRESSION: No acute process. D/ / Hernan Oshea MD / Hernan Oshea MD Interpreting Provider: Hernan Oshea MD CT scan - chest Additional comments: Chest CTA 04/01/17 19:50 IMPRESSION: 1. No pulmonary embolus. 2. No acute cardiopulmonary disease. 3. Emphysema. 4. Nonspecific 6 mm pulmonary nodule in the left lower lobe. No prior studies are available for comparison. Recommend repeat CT chest in 6 to 12 months for a high risk patient. RECOMMENDATIONS: Fleischner Society guidelines for follow-up and management of incidentally detected pulmonary nodules: Single Solid Nodule: Nodule size equals 6-8 mm In a high-risk patient, CT at 6-12 months, then CT at 18-24 months. Radiology 2017 http://pubs.[facility]na.org/doi/full/10.1148/radiol.[email or web address] D/ / 04/01/2017 21:14:15 Alejandra Nava MD / aurelia Interpreting Provider: Alejandra Nava MD <Milana Palomino - Last Filed: 04/02/17 03:43> Date of Encounter: 04/02/17 Time of Encounter: 03:15 Internal Medicine - H&P: HPI History of present illness: Mr. Gray is a 52 year old male All Systems PM: A 10-system review of systems was performed and is negative for pertinent findings except as documented above in the HPI. - Constitutional Vitals: Temp Pulse Resp BP Pulse Ox 97.8 F 69 20 133/79 92 04/02/17 01:18 04/02/17 01:18 04/02/17 01:18 04/02/17 01:18 04/02/17 01:18 Internal Med - H&P Results - Labs CBC & Chem 7: 04/02/17 01:19 04/02/17 01:19 Labs: Short CBC 04/02/17 Range/Units 01:19 WBC 6.3 (4.3-11.1) K/mcL Hgb 12.6 L (12.9-16.9) g/dL Hct 37.0 L (37.5-50.1) % Plt Count 343 (140-400) K/mcL Neutrophils # 3.2 (1.6-8.9) K/mcL BMP 04/02/17 01:19 Sodium 140 Potassium 3.8 Chloride 112 H Carbon Dioxide 22 BUN 16 Creatinine 0.93 Glucose 81 Calcium 8.3 L Cardiac Enzymes 04/02/17 Range/Units 01:19 Troponin I 0.02 (0-0.03) ng/mL - Attending Attestation I have independently seen and examined the patient. Patient admitted for generalized weakness and chest pain concerning for viral myopericariditis He was found to be verbally abusive to the nursing staff. Pt is comfortably sleeping in bed however as he wakes up, he started demanded pain medications and when the nursing staff tried explaining his medications, patient got hostile and aggressive. He keeps threatening to leave AMA if he does not get his pain medications. He is noted to have HR in the 40s-50s and does not appear to be in any distress. He is educated about the risks of leaving AMA. At this time he is resting in bed, however keeps making threats to leave AMA. Pt was seen at an outside ER yesterday where he had also signed out AMA. Case discussed with PAULA Turner, I agree with her documented findings, assessment,and plan except as listed above.
[2017-04-02] MEDS: 0.9 % Sodium Chloride 1,000 ML IVC SCH ×2 (00:11→11:39)
[2017-04-02 01:29] LABS: Basophils # 0.1 K/mcL (0.0-0.2); Basophils % 1.1 %; Eosinophils # 0.4 K/mcL (0.0-0.6); Eosinophils % 6.4 %; Hemoglobin 12.6 g/dL (12.9-16.9); Immature Granulocytes % 0.8 % (0-4); Lymphocytes # 2.2 K/mcL (0.6-4.6); Lymphocytes % 34.4 %; Mean Corpuscular HGB Conc 34.1 g/dL (31.6-35.5); Mean Corpuscular Hemoglobin 30.7 pg (28.0-33.3); Mean Platelet Volume 9.5 fL (9.4-12.4); Monocytes # 0.4 K/mcL (0.0-1.3); Neutrophils # 3.2 K/mcL (1.6-8.9); Platelet Count 343 K/mcL (140-400); Red Blood Count 4.11 M/mcL (4.19-5.50); Red Cell Distribution Width 13.3 % (11.5-14.5); Segmented Neutrophils % 50.3 %
[2017-04-02 01:43] LABS: BUN/Creatinine Ratio 17 (6-26); Blood Urea Nitrogen 16 mg/dL (8-26); Calcium 8.3 mg/dL (8.6-10.8); Carbon Dioxide 22 mEq/L (19-29); Chloride 112 mEq/L (98-109); Glucose 81 mg/dL (70-99); Osmolality,Calculated 290 (280-300); Potassium 3.8 mEq/L (3.5-4.5); Sodium 140 mEq/L (136-145); eGFR For African Americans > 60 (> 60); eGFR For Non-African Americans > 60 (> 60)
[2017-04-02] MEDS: Aspirin 325 MG TABLET PO SCH ×3 (03:02→21:14)
[2017-04-02] MEDS: Doxycycline 100 MG in 0.9 % Sodium Chloride Mini Bag 100 ML IVPB SCH ×2 (05:21→17:40)
[2017-04-02] MEDS: Nicotine 21 MG PATCH.TD24 TD SCH ×2 (05:21→08:31)
[2017-04-02] MEDS: Tiotropium 18 MCG inhalation IH SCH (07:42)
[2017-04-02] MEDS: Budesonide/Formoterol 160/4.5 MDI IH SCH ×2 (07:43→19:53)
[2017-04-02] MEDS: Topiramate 25 MG TABLET PO SCH ×2 (08:30→21:14)
[2017-04-02] MEDS: APIXABAN 5 MG TABLET PO SCH ×2 (08:30→21:14)
[2017-04-02] MEDS: *HR* HYDROcodone/Acet 5/325 mg TABLET PO PRN ×2 (08:30→13:30)
--- NOTE | 2017-04-02 08:45 | Cardiology Consult Note ---
Date of Encounter: 04/02/17 Time of Encounter: 08:40 Assessment and Plan (1) Pericarditis Current Visit: Yes Status: Acute Per Cardiology: Reportedly told at outside facility has pericarditis. ECG shows diffuse ST elevations throughout all leads-- slightly worse than baseline. No CP currently. CP reproducible with movement and palpation. Had mild trop 0.06 last week with 2 subsequent negatives. Now with [address] negative for PE. Echo March 2017 showed EF 65%, no pulmonary hypertension, no significant valvular dysfunction, NSWMA. Has current repeat echo pending per primary team. Negative nuclear stress test at [facility] 01/2016 and at [facility] 11/2016. Has never had LHC-- has significant risk factors for CAD-- nicotine abuse, HTN, HLD. Was reportedly told needed LHC at outside facility, however left AMA. Will discuss with Dr. Mcarthur further ischemic eval, however suspect may consider in outpatient setting once acute comorbids improve. Blood Cx pending. On full dose ASA 325mg PO BID. On statin. Will discuss with Dr. Mcarthur. Qualifiers: Pericarditis type: infectious Infectious pericarditis etiology: unspecified Chronicity: acute Qualified Code(s): I30.1 - Infective pericarditis (2) [place] spotted fever Current Visit: Yes Status: Acute Per Cardiology: Reportedly called from [place] ER and told positive for [place] spotted fever. Patient reports any recent bites or tick exposures. Current lab work pending. Management per primary service. (3) Tobacco dependence Current Visit: Yes Status: Chronic Per Cardiology: History of smoking about one pack per day for 40 years. Smoking cessation highly encouraged. (4) WPW (Ipydd-Zbyiugala-Kqjcu syndrome) Current Visit: No Status: Chronic Per Cardiology: Reported history of Hmxap-Isjfbsyie-Opozs with ablation at [facility] and paroxysmal atrial fibrillation. Anticoagulated with Eliquis. Discussion w patient/family: The assessment and plan as outlined above was discussed with the patient and/or family members who expressed understanding and agreement. All questions were answered. Thank you for involving us in the care of your patient. Please call with any questions. History of Present Illness Consult date: 04/02/17 Consult reason: ECG Changes, CP Chief complaint: CP, JAIME History of present illness: Mr. Gray is a 52 year old male with a relevant past medical history of Dominic- Parkinson-White with ablation at [facility], COPD, nicotine abuse, chronic back pain, hypertension, paroxysmal atrial fibrillation on Eliquis for anticoagulation. Patient seen during hospital stay last week by cardiology for atypical chest pain, "generalized body aches "" panic attacks". Of note previous records reviewed and patient admitted to [facility] March 20, 2017 and left AMA, had [facility] ER admission March 21, 2017, and [facility] admission March 22, 2017 of which was transferred to [facility]-- was seen by cardiology. Echo completed showed EF 60-55%, no pulmonary hypertension, no significant valvular dysfunction, no segment wall motion abnormalities. Cardiology consult for concerns of EKG changes and chest pain. Patient seen today with at bedside. Reports since discharge continues to feel overall general fatigue and decreased energy for past 3 weeks. Reports presented to ER in [place] Sunday with concerns of headache. They indicate discharged, however received a phone call the following day with concerns of blood tests showing positive for [place] spotted fever. Presented back to ER reportedly for concerns of abnormal ECG changes and was reportedly life flighted to [facility] for possible catheterization. Reportedly was told at that time had pericarditis and influenza A. They report there is discussion of catheterization, however patient left AM. Presented to the [facility] yesterday evening for concerns of low blood pressures-- reports blood pressures were 52/85. He reports generalized weakness. He denied any loss of consciousness, syncope, falls. Does report dizziness upon standing, however improved with position changes cautiously recently. He denies any active bleeding or blood loss. Reports some fever and chills about a week ago, however nothing recently. Denies any nausea, vomiting, diarrhea. Reports left-sided anterior chest wall discomfort worse with palpation and position changes-- remains overall unchanged since recent hospital discharge. He denies any recent bug bites or tick exposure to his awareness. He reports increased stress the past 3 weeks with father passing away. Past Med Surg Social Fam HX - Past Medical History Attestation: Yes The following information was validated with the patient. Source: patient, old records reviewed, obtained from family Medical history: arthritis, atrial fibrillation, COPD, coronary artery disease, CVA, GERD, hypertension, kidney stones, myocardial infarction, renal disease Psychiatric history: anxiety, depression - Past Surgical History Surgical History: knee replacement, other - Social History Smoking Status: Current every day smoker Packs per day: 1 Smokeless Tobacco Status: No Alcohol use: none Drug use: none - Family History Father History Unknown: Yes Living Status: Age at : 78 Cause of : melanoma Hx Family Cardiac Disorders: No Hx Family Respiratory Disorders: No Hx Family Cancer: Yes Mother Adopted: No Family Member Ethnicity: Non- Living Status: Still Living Hx Family Cardiac Disorders: Yes Hx Family Cancer: Yes (Breast CA) Medications and Allergies Aspirin Enteric Coated [Aspirin EC] 81 mg PO DAILY 02/14/16 [History] Atorvastatin Calcium [Lipitor] 80 mg PO HS 02/14/16 [History] Budesonide/Formoterol 160/4.5 [Symbicort 160/4.5] 2 puff IH BID 02/14/16 [ History] Omeprazole [PriLOSEC] 20 mg PO DAILY 02/14/16 [History] Tiotropium [place] [Spiriva] 1 puff IH DAILY 02/14/16 [History] Trazodone HCl 200 mg PO HS 02/14/16 [History] diazePAM [Valium] 10 mg PO TID PRN 02/14/16 [History] Albuterol Sulfate [Ventolin Hfa] 2 puff IH Q4-6H PRN 03/20/17 [History] Apixaban [Eliquis] 5 mg PO BID 03/20/17 [History] Gabapentin [Neurontin] 1,200 mg PO TID 03/20/17 [History] Lisinopril [Zestril] 20 mg PO DAILY 03/20/17 [History] Nitroglycerin [Nitrostat] 0.4 mg SL Q5M PRN 03/20/17 [History] Tizanidine HCl 4 mg PO TID 03/20/17 [History] Topiramate [Topamax] 25 mg PO BID 03/20/17 [History] cloNIDine HCl [CloNIDine HCl] 0.1 mg PO TID 03/20/17 [History] Fluticasone/Vilanterol [Breo Ellipta 100-25 Mcg INH] 1 each IH DAILY 03/22/17 [ History] Acetaminophen/Butalbital/Caffe [Fioricet] 1 each PO DAILY PRN #4 tablet [Rx] 3 Allergy/AdvReac Type Severity Reaction Status Date / Time ketorolac [From Toradol] Allergy Itching Verified 04/02/17 09:39 Sulfa (Sulfonamide Allergy Itching Verified 04/02/17 09:39 Antibiotics) tramadol Allergy Itching Verified 04/02/17 09:39 All Systems Review: A 10-system review of systems was performed and is negative for pertinent findings except as documented above in the HPI. - Constitutional Constitutional: fatigue, headache(s), weakness - Cardiovascular Cardiovascular: as per HPI, chest pain at rest - Neurological Neurological: dizziness Physical Examination Vital Signs, Last 4 Hours Temp Pulse Resp BP Pulse Ox 04/02/17 07:46 18 95 04/02/17 07:16 98.7 F 67 16 145/85 95 04/02/17 05:40 97 04/02/17 05:00 98.6 F 70 20 138/76 99 General: Conversant, No Apparent Distress HEENT: Atraumatic, Normocephaly, Mucus Membranes Moist Neck: No JVD, Normal carotid pulses Cardiac: Reg Rate and Rhythm, Normal S1 and S2, No Murmur, Other (Left anterior CW pain reproducible on exam) Lungs: Normal Breath Sounds, No Wheeze, Rales, Rhonchi Neuro: Alert and responsive, No focal deficits noted, Other (flat affect) Abdomen: Soft, Non-Tender Skin: No rashes noted on visualized skin Musculoskeletal: No Chest Wall Tenderness Extremities: No Clubbing, No Cyanosis, No Edema, Normal Pulses Results 04/02/17 01:19 04/02/17 01:19 Lab Results Laboratory Tests 04/01/17 04/01/17 04/01/17 19:31 19:31 19:31 INR 1.3 Troponin I 0.00 B-Natriuretic Peptide 34 04/02/17 04/02/17 01:19 07:06 INR Troponin I 0.02 0.03 B-Natriuretic Peptide ITS Impressions Chest X-Ray 04/01/17 19:21 IMPRESSION: No acute process. D/ / Hernan Oshea MD / Hernan Oshea MD Interpreting Provider: Hernan Oshea MD Chest CTA 04/01/17 19:50 IMPRESSION: 1. No pulmonary embolus. 2. No acute cardiopulmonary disease. 3. Emphysema. 4. Nonspecific 6 mm pulmonary nodule in the left lower lobe. No prior studies are available for comparison. Recommend repeat CT chest in 6 to 12 months for a high risk patient. RECOMMENDATIONS: Fleischner Society guidelines for follow-up and management of incidentally detected pulmonary nodules: Single Solid Nodule: Nodule size equals 6-8 mm In a high-risk patient, CT at 6-12 months, then CT at 18-24 months. Radiology 2017 http://pubs.rsna.org/doi/full/10.1148/radiol.9589059904 D/ / 04/01/2017 21:14:15 Alejandra Nava MD / bcarter Interpreting Provider: Alejandra Nava MD Active Medications Acetaminophen (Tylenol) 650 mg PO Q6HR PRN PRN Reason: Mild Pain (1-3) Stop: 10/01/17 23:26 Hydrocodone Bitart/Acetaminophen ([place] 5-325 Mg) 1 tab PO Q4HR PRN PRN Reason: Moderate Pain (4-6) Stop: 10/01/17 23:26 Last Admin: 04/02/17 08:30 Dose: 1 tab Albuterol Sulfate (Albuterol Inhaler) 2 puff IH Q4H PRN PRN Reason: Dyspnea Stop: 10/01/17 23:52 Last Admin: 04/02/17 07:42 Dose: 2 puff Apixaban (Eliquis) 5 mg PO BID [facility] Stop: 10/02/17 09:01 Last Admin: 04/02/17 08:30 Dose: 5 mg Aspirin (Aspirin) 325 mg PO BID [facility] Stop: 10/01/17 23:46 Last Admin: 04/02/17 08:30 Dose: 325 mg Atorvastatin Calcium (Lipitor) 80 mg PO HS [facility] Stop: 10/02/17 21:01 Budesonide/Formoterol Fumarate (Symbicort) 2 puff IH BIDR [facility] PRN Reason: Protocol Stop: 10/02/17 10:01 Last Admin: 04/02/17 07:43 Dose: 2 puff Docusate Sodium (Colace) 100 mg PO BID PRN PRN Reason: Constipation Stop: 10/01/17 23:26 Sodium Chloride (0.9 % Sodium Chloride) 1,000 mls @ 100 mls/hr IVC .Q10H [facility] Stop: 10/01/17 23:31 Last Admin: 04/02/17 00:11 Dose: 100 mls/hr Doxycycline Hyclate 100 mg/ (Sodium Chloride) 100 mls @ 100 mls/hr IVPB Q12HR [facility] Stop: 10/02/17 06:01 Last Admin: 04/02/17 05:21 Dose: 100 mls/hr Naloxone HCl (Narcan) 0.4 mg IVP Q2MIN PRN PRN Reason: Opioid Reversal Stop: 10/01/17 23:26 Nicotine (Nicoderm) 21 mg TD DAILY [facility] Stop: 10/02/17 00:16 Last Admin: 04/02/17 08:31 Dose: Not Given Nitroglycerin (Nitroglycerin) 0.4 mg SL Q5M PRN PRN Reason: Chest Pain Stop: 10/01/17 23:35 Omeprazole (Prilosec) 20 mg PO 0630 [facility] PRN Reason: Protocol Stop: 10/02/17 06:31 Last Admin: 04/02/17 05:21 Dose: 20 mg Ondansetron HCl (Zofran) 4 mg IVP Q8HR PRN PRN Reason: Nausea And Vomiting Stop: 10/01/17 23:26 Pharmacy Profile Note (Patient Taking Own Medication) 1 each IH DAILY [facility] Stop: 10/02/17 09:01 Last Admin: 04/02/17 08:31 Dose: Not Given Tiotropium Whitestone (Spiriva) 18 mcg IH DAILY [facility] Stop: 10/02/17 09:01 Last Admin: 04/02/17 07:42 Dose: 18 mcg Tizanidine HCl (Zanaflex) 4 mg PO TID [facility] Stop: 10/02/17 09:01 Last Admin: 04/02/17 08:30 Dose: 4 mg Topiramate (Topamax) 25 mg PO BID [facility] Stop: 10/02/17 09:01 Last Admin: 04/02/17 08:30 Dose: 25 mg Trazodone HCl (Trazodone) 200 mg PO HS [facility] Stop: 10/02/17 21:01 - Imaging and Cardiology Chest Xray: report reviewed Echo: report reviewed - EKG Interpretation EKG results cardiology: personally reviewed (diffuse ST elevations throughout all leads, slighty worse compared to last week), other (Telemetry reviewed with average heart rate 58 the past 12 hours, sinus bradycardia to sinus rhythm, no significant events noted) Consult Discharge Plan - Plan Referrals: Ivone Roberto MD [Primary Care Provider] -
[2017-04-02] MEDS ORDERED: tiZANidine 4 MG TABLET PO SCH (09:00)
[2017-04-02] MEDS ORDERED: tiZANidine 4 MG TABLET PO PRN (13:13)
[2017-04-02] MEDS: Gabapentin 400 MG CAPSULE PO SCH ×2 (14:23→21:13)
[2017-04-02] MEDS: Lisinopril 20 MG TABLET PO SCH (14:23)
[2017-04-02] MEDS: diazePAM 10 MG TABLET PO PRN ×2 (14:23→21:13)
--- NOTE | 2017-04-02 14:58 | Electrocardiograph Report ---
[place] [id number] Test Date: 2017-04-01 Pat Name: Iftikhar Gray Department: 103 Room: 2NE27 Gender: M Head Host/Hostess: : 1965 Requested By: Michelle Nguyen Order Number: [id number] Reading MD: Romie York MD Measurements Intervals [place] Rate: 50 P: 74 HI: 154 QRS: 71 QRSD: 102 T: 60 QT: 455 QTc: 430 Interpretive Statements SINUS BRADYCARDIA WITH OCCASIONAL VENTRICULAR PREMATURE COMPLEXES EARLY REPOLARIZATION Electronically Signed On 04-02-2017 14:57:28 EDT by Romie York MD
--- NOTE | 2017-04-02 17:23 | Internal Med Progress Note ---
Date of Encounter: 04/02/17 Time of Encounter: 09:00 - Assessment and plan (1) Tobacco dependence Current Visit: Yes Status: Chronic Assessment and plan: Continue nicotine patch (2) COPD (chronic obstructive pulmonary disease) Current Visit: Yes Status: Chronic Assessment and plan: No signs of exacerbation. Continue home medications Qualifiers: COPD type: emphysema Emphysema type: unspecified Qualified Code(s): J43.9 - Emphysema, unspecified (3) DVT prophylaxis Current Visit: Yes Status: Acute Assessment and plan: Patient is on Eliquis. (4) WPW (Cldax-Jzwmdqbzn-Kdiln syndrome) Current Visit: No Status: Chronic Assessment and plan: Pt report has a history of WPW, after ablation, has paroxysmal A. fib, on Eliquis right now. (5) [place] spotted fever Current Visit: Yes Status: Acute Assessment and plan: Reportedly diagnosed by [facility], lab work is pending. Continue the doxycycline. Try to obtain medical records from [facility]. (6) Pericarditis Current Visit: Yes Status: Acute Assessment and plan: Patient complaining of chest pain. Improved now with aspirin 325 by mouth twice a day. EKG shows typical ST elevation. Cardiology consult appreciated. Further recommendations will be followed. Qualifiers: Pericarditis type: infectious Infectious pericarditis etiology: unspecified Chronicity: acute Qualified Code(s): I30.1 - Infective pericarditis - Subjective Interval history: Patient is a 52-year-old male admitted for chest pain, consider pericarditis. Past medical history is significant for A. fib on Eliquis, COPD, CAD, CVA, hypertension, kidney stone Patient was seen and examined. Complained of mild chest pain, worsen on movement, about the same pain when laid down or sit up and lean forward. Vitals are stable. Cardiology saw patient and recommendation appreciated. Currently will continue aspirin 325 twice a day for pericarditis. Further treatment will follow cardio recommendation. Patient does report that he was diagnosed as [place] spotted fever in [facility]. We checked the Abs here, results is pending. Will also try to obtain medical record from [facility]. Continue doxycycline treatment. - Constitutional Vitals: Temp Pulse Resp BP Pulse Ox 98.3 F 68 16 129/90 98 04/02/17 15:27 04/02/17 15:27 04/02/17 15:27 04/02/17 15:27 04/02/17 15:27 General appearance: Present: A&O X 3, no acute distress - Head Head exam: Present: atraumatic, normocephalic - Eye Eye exam: Present: PERRL, conjuntiva pink, sclera anicteric Pupils: Present: PERRL - Neck Neck exam general surgery: Present: supple, trachea midline. Absent: lymphadenopathy - Respiratory Respiratory exam: Present: chest wall tenderness, CTAB. Absent: accessory muscle use, rales, rhonchi, wheezes - Cardiovascular Cardiovascular exam: Present: RRR, +S1, +S2. Absent: diastolic murmur, gallop, rubs, systolic murmur - GI/Abdominal GI/Abdominal exam: Present: normal bowel sounds, soft, no peritoneal signs. Absent: distended, tenderness - Extremities Exam Extremities exam: Present: warm, radial pulses palpable and symmetrical. Absent : calf tenderness, cyanotic, pedal edema - Neurological Exam Neurological exam: Present: CN II-XII intact, oriented X3, no focal deficits. Absent: pronater drift, facial droop, speech deficit - Skin Skin exam: Present: dry, intact Internal Medicine: Result - Labs CBC & Chem 7: 04/02/17 01:19 04/02/17 01:19 Labs: Short CBC 04/02/17 Range/Units 01:19 WBC 6.3 (4.3-11.1) K/mcL Hgb 12.6 L (12.9-16.9) g/dL Hct 37.0 L (37.5-50.1) % Plt Count 343 (140-400) K/mcL Neutrophils # 3.2 (1.6-8.9) K/mcL BMP 04/02/17 01:19 Sodium 140 Potassium 3.8 Chloride 112 H Carbon Dioxide 22 BUN 16 Creatinine 0.93 Glucose 81 Calcium 8.3 L Cardiac Enzymes 04/02/17 04/02/17 Range/Units 01:19 07:06 Troponin I 0.02 0.03 (0-0.03) ng/mL - ABG Interpretation ABG results: PT/INR, D-dimer PT 13.6 Seconds (9.4-12.1) H 04/01/17 19:31 - Impressions Impressions Echocardiogram Limited Views 04/02/17 00:01 Impressions: LVEF 65%. Normal LV chamber size, wall thickness and function. The pericardium appears normal. No effusion. Left Ventricular Wall Motion: Rest Echo Findings All wall segments showed normal motion. Findings: Study Quality * Technically adequate exam. ECG Findings * Normal sinus rhythm. Left Ventricle * LVEF 65%. * Normal LV chamber size, wall thickness and function. Right Ventricle * Normal right ventricular structure and function. Pericardium * The pericardium appears normal. IVC * Normal IVC dimensions and inspiratory collapse. Aorta * Normally sized aortic root. Consult Discharge Plan - Plan Referrals: Ivone Roberto MD [Primary Care Provider] -
[2017-04-02] MEDS: *HR* OxyCODONE/APAP 5/325 TABLET PO PRN (17:40)
[2017-04-02] MEDS: traZODone 50 MG TABLET PO SCH (21:14)
[2017-04-03] MEDS: 0.9 % Sodium Chloride 1,000 ML IVC SCH (01:00)
[2017-04-03] MEDS: *HR* OxyCODONE/APAP 5/325 TABLET PO PRN ×5 (02:07→21:56)
[2017-04-03 04:02] LABS: Basophils # 0.1 K/mcL (0.0-0.2); Basophils % 1.3 %; Eosinophils # 0.5 K/mcL (0.0-0.6); Hemoglobin 12.4 g/dL (12.9-16.9); Immature Granulocytes % 0.3 % (0-4); Lymphocytes # 2.2 K/mcL (0.6-4.6); Lymphocytes % 30.6 %; Mean Corpuscular HGB Conc 34.4 g/dL (31.6-35.5); Mean Corpuscular Hemoglobin 31.2 pg (28.0-33.3); Mean Corpuscular Volume 90.5 fL (83.0-100.0); Mean Platelet Volume 9.6 fL (9.4-12.4); Monocytes # 0.5 K/mcL (0.0-1.3); Monocytes % 7.3 %; Neutrophils # 3.8 K/mcL (1.6-8.9); Platelet Count 313 K/mcL (140-400); Red Blood Count 3.98 M/mcL (4.19-5.50); Segmented Neutrophils % 53.5 %
[2017-04-03 04:18] LABS: BUN/Creatinine Ratio 16 (6-26); Blood Urea Nitrogen 13 mg/dL (8-26); Calcium 8.3 mg/dL (8.6-10.8); Carbon Dioxide 21 mEq/L (19-29); Chloride 115 mEq/L (98-109); Glucose 93 mg/dL (70-99); Osmolality,Calculated 298 (280-300); Potassium 3.7 mEq/L (3.5-4.5); Sodium 144 mEq/L (136-145); eGFR For African Americans > 60 (> 60); eGFR For Non-African Americans > 60 (> 60)
[2017-04-03] MEDS: Doxycycline 100 MG in 0.9 % Sodium Chloride Mini Bag 100 ML IVPB SCH ×2 (06:14→16:28)
--- NOTE | 2017-04-03 08:46 | Cardiology Progress Note ---
Date of Encounter: 04/03/17 Time of Encounter: 08:45 Assessment and Plan (1) Pericarditis Current Visit: Yes Status: Acute Per Cardiology: Reportedly told at outside facility has pericarditis. ECG shows diffuse ST elevations throughout all leads-- slightly worse than baseline. CP reproducible with movement and palpation. Had mild trop 0.06 last week with 2 subsequent negatives. Now with [address] negative for PE. Current echo shows EF remains normal at 65%, no effusion, NSWMA. Negative nuclear stress test at [facility] 01/2016 and at [facility] 11/2016. Has never had LHC-- has significant risk factors for CAD-- nicotine abuse, HTN, HLD. Was reportedly told needed LHC at outside facility, however left AMA. Discussed with Dr. Mcarthur, will s/o, re-consult PRN, f/u already scheduled, will consider need for further ischemic eval in outpatient setting once acute comorbids improve. Blood Cx and urine Cx negative. On full dose ASA 325mg PO BID-- monitor for any bleeding with Eliquis and high dose asa treatment for pericarditis-- discussed with Dr. Mcarthur and continue current regimen (consider increase dose to q8hrs if symptoms do not improve). On statin. Patient verbalized understanding and agreed with plan. Qualifiers: Pericarditis type: infectious Infectious pericarditis etiology: unspecified Chronicity: acute Qualified Code(s): I30.1 - Infective pericarditis (2) [place] spotted fever Current Visit: Yes Status: Acute Per Cardiology: Reportedly called from [facility] and told positive for [place] spotted fever. Patient reports any recent bites or tick exposures. Current lab work pending. Management per primary service. (3) Tobacco dependence Current Visit: Yes Status: Chronic Per Cardiology: History of smoking about one pack per day for 40 years. Smoking cessation highly encouraged. (4) WPW (Fhudb-Elxewtlmm-Hgexo syndrome) Current Visit: No Status: Chronic Per Cardiology: Reported history of Bhfsa-Ixmdhvrco-Hewwb with ablation at [facility] and paroxysmal atrial fibrillation. Anticoagulated with Eliquis. Discussion w patient/family: The assessment and plan as outlined above was discussed with the patient and/or family members who expressed understanding and agreement. All questions were answered. Thank you for involving us in the care of your patient. Please call with any questions. Subjective Principal diagnosis: CP Interval history: Patient with complaints of generalized overall bodyaches this morning, he reports worse since admission. He reports chronic chest soreness worse with palpation and movement. He reports headache today. He denies any other new concerns or complaints. Objective Vital Signs, Last 4 Hours Temp Pulse Resp BP Pulse Ox 04/03/17 06:29 97.9 F 57 18 137/81 97 04/03/17 05:00 98.7 F 52 18 129/72 91 General: Conversant, No Apparent Distress Cardiac: Reg Rate and Rhythm, Normal S1 and S2, No Murmur Lungs: Normal Breath Sounds, No Wheeze, Rales, Rhonchi Neuro: Alert and responsive, No focal deficits noted Skin: No rashes noted on visualized skin Musculoskeletal: Other (Chest pain worse with palpation) Extremities: No Edema, Normal Pulses Results 04/03/17 03:39 04/03/17 03:39 Lab Results Laboratory Tests 04/01/17 04/02/17 04/02/17 19:31 01:19 07:06 Troponin I 0.00 0.02 0.03 Impressions Chest CTA 04/01/17 19:50 IMPRESSION: 1. No pulmonary embolus. 2. No acute cardiopulmonary disease. 3. Emphysema. 4. Nonspecific 6 mm pulmonary nodule in the left lower lobe. No prior studies are available for comparison. Recommend repeat CT chest in 6 to 12 months for a high risk patient. RECOMMENDATIONS: Fleischner Society guidelines for follow-up and management of incidentally detected pulmonary nodules: Single Solid Nodule: Nodule size equals 6-8 mm In a high-risk patient, CT at 6-12 months, then CT at 18-24 months. Radiology 2017 http://pubs.rsna.org/doi/full/10.1148/[email or web address] D/ / 04/01/2017 21:14:15 Alejandra Nava MD / aurelia Interpreting Provider: Alejandra Nava MD Echocardiogram Limited Views 04/02/17 00:01 Impressions: LVEF 65%. Normal LV chamber size, wall thickness and function. The pericardium appears normal. No effusion. Left Ventricular Wall Motion: Rest Echo Findings All wall segments showed normal motion. Findings: Study Quality * Technically adequate exam. ECG Findings * Normal sinus rhythm. Left Ventricle * LVEF 65%. * Normal LV chamber size, wall thickness and function. Right Ventricle * Normal right ventricular structure and function. Pericardium * The pericardium appears normal. IVC * Normal IVC dimensions and inspiratory collapse. Aorta * Normally sized aortic root. Active Medications Acetaminophen (Tylenol) 650 mg PO Q6HR PRN PRN Reason: Mild Pain (1-3) Stop: 10/01/17 23:26 Albuterol Sulfate (Albuterol Inhaler) 2 puff IH Q4H PRN PRN Reason: Dyspnea Stop: 10/01/17 23:52 Last Admin: 04/02/17 07:42 Dose: 2 puff Apixaban (Eliquis) 5 mg PO BID [facility] Stop: 10/02/17 09:01 Last Admin: 04/02/17 21:14 Dose: 5 mg Aspirin (Aspirin) 325 mg PO BID [facility] Stop: 10/01/17 23:46 Last Admin: 04/02/17 21:14 Dose: 325 mg Atorvastatin Calcium (Lipitor) 80 mg PO HS [facility] Stop: 10/02/17 21:01 Last Admin: 04/02/17 21:13 Dose: 80 mg Budesonide/Formoterol Fumarate (Symbicort) 2 puff IH BIDR [facility]ESSE PRN Reason: Protocol Stop: 10/02/17 10:01 Last Admin: 04/02/17 19:53 Dose: 2 puff Diazepam (Valium) 10 mg PO TID PRN PRN Reason: Anxiety Stop: 10/02/17 13:13 Last Admin: 04/02/17 21:13 Dose: 10 mg Docusate Sodium (Colace) 100 mg PO BID PRN PRN Reason: Constipation Stop: 10/01/17 23:26 Gabapentin (Neurontin) 1,200 mg PO TID [facility] Stop: 10/02/17 15:01 Last Admin: 04/02/17 21:13 Dose: 1,200 mg Sodium Chloride (0.9 % Sodium Chloride) 1,000 mls @ 100 mls/hr IVC .Q10H [facility] Stop: 10/01/17 23:31 Last Admin: 04/03/17 01:00 Dose: 100 mls/hr Doxycycline Hyclate 100 mg/ (Sodium Chloride) 100 mls @ 100 mls/hr IVPB Q12HR [facility]ESSE Stop: 10/02/17 06:01 Last Admin: 04/03/17 06:14 Dose: 100 mls/hr Lisinopril (Zestril) 20 mg PO DAILY FINESSE PRN Reason: Protocol Stop: 10/02/17 13:16 Last Admin: 04/02/17 14:23 Dose: 20 mg Naloxone HCl (Narcan) 0.4 mg IVP Q2MIN PRN PRN Reason: Opioid Reversal Stop: 10/01/17 23:26 Nicotine (Nicoderm) 21 mg TD DAILY [facility] Stop: 10/02/17 00:16 Last Admin: 04/02/17 08:31 Dose: Not Given Nitroglycerin (Nitroglycerin) 0.4 mg SL Q5M PRN PRN Reason: Chest Pain Stop: 10/01/17 23:35 Omeprazole (Prilosec) 20 mg PO 0630 FINESSE PRN Reason: Protocol Stop: 10/02/17 06:31 Last Admin: 04/03/17 06:14 Dose: 20 mg Ondansetron HCl (Zofran) 4 mg IVP Q8HR PRN PRN Reason: Nausea And Vomiting Stop: 10/01/17 23:26 Oxycodone/Acetaminophen (Percocet 5/325) 1 each PO Q4HR PRN PRN Reason: Pain Stop: 10/02/17 15:17 Last Admin: 04/03/17 07:10 Dose: 1 each Tiotropium [place] (Spiriva) 18 mcg IH DAILY [facility] Stop: 10/02/17 09:01 Last Admin: 04/02/17 07:42 Dose: 18 mcg Tizanidine HCl (Zanaflex) 4 mg PO TID PRN PRN Reason: MUSCLE SPASMS Stop: 10/02/17 09:01 Topiramate (Topamax) 25 mg PO BID [facility] Stop: 10/02/17 09:01 Last Admin: 04/02/17 21:14 Dose: 25 mg Trazodone HCl (Trazodone) 200 mg PO HS [facility] Stop: 10/02/17 21:01 Last Admin: 04/02/17 21:14 Dose: 200 mg - Imaging and Cardiology Echo: report reviewed - EKG Interpretation EKG results cardiology: other (SR 80's - 90's on tele) Consult Discharge Plan - Plan Referrals: Ivone Roberto MD [Primary Care Provider] -
[2017-04-03] MEDS: Lisinopril 20 MG TABLET PO SCH (09:44)
[2017-04-03] MEDS: Gabapentin 400 MG CAPSULE PO SCH ×3 (09:44→21:56)
[2017-04-03] MEDS: Topiramate 25 MG TABLET PO SCH ×2 (09:44→21:56)
[2017-04-03] MEDS: Aspirin 325 MG TABLET PO SCH ×2 (09:44→21:57)
[2017-04-03] MEDS: APIXABAN 5 MG TABLET PO SCH ×2 (09:44→21:56)
[2017-04-03] MEDS: Nicotine 21 MG PATCH.TD24 TD SCH (09:45)
[2017-04-03] MEDS: diazePAM 10 MG TABLET PO PRN (09:54)
[2017-04-03] MEDS: Budesonide/Formoterol 160/4.5 MDI IH SCH ×2 (10:26→22:09)
[2017-04-03] MEDS: Tiotropium 18 MCG inhalation IH SCH (10:26)
[2017-04-03] MEDS: diazePAM 10 MG TABLET PO SCH ×2 (14:59→21:56)
--- NOTE | 2017-04-03 18:40 | Internal Med Progress Note ---
<Nelli Dawn - Last Filed: 04/03/17 18:38> Date of Encounter: 04/03/17 Time of Encounter: 18:38 - Assessment and plan (1) Pericarditis Current Visit: Yes Status: Acute Assessment and plan: Continue full dose aspirin BID Follow-up with cardiology outpatient Qualifiers: Pericarditis type: infectious Infectious pericarditis etiology: unspecified Chronicity: acute Qualified Code(s): I30.1 - Infective pericarditis (2) [place] spotted fever Current Visit: Yes Status: Acute Assessment and plan: Labs from [facility] were positive for [place] spotted fever Continue doxycycline (3) WPW (Rscro-Uxpiradjj-Zgycy syndrome) Current Visit: No Status: Chronic Assessment and plan: Ablation at [facility], paroxysmal A. fib Anticoagulated with Eliquis (4) Tobacco dependence Current Visit: Yes Status: Chronic Assessment and plan: Nicotine patch (5) COPD (chronic obstructive pulmonary disease) Current Visit: No Status: Chronic Assessment and plan: Continue home meds Qualifiers: COPD type: unspecified COPD Qualified Code(s): J44.9 - Chronic obstructive pulmonary disease, unspecified - Subjective Interval history: Patient complaining of pain in his head and shoulders and hips. He states that his head feels the size of [place]. - Constitutional Vitals: Temp Pulse Resp BP Pulse Ox 98.2 F 62 17 152/89 96 04/03/17 15:00 04/03/17 15:00 04/03/17 15:00 04/03/17 15:00 04/03/17 15:00 General appearance: Present: A&O X 3, no acute distress - Head Head exam: Present: atraumatic, normocephalic - Eye Eye exam: Present: PERRL, conjuntiva pink, sclera anicteric Pupils: Present: PERRL - Neck Neck exam general surgery: Present: supple, trachea midline - Respiratory Respiratory exam: Present: CTAB. Absent: wheezes - Cardiovascular Cardiovascular exam: Present: RRR, +S1, +S2 - GI/Abdominal GI/Abdominal exam: Present: normal bowel sounds, soft. Absent: tenderness - Extremities Exam Extremities exam: Present: warm. Absent: pedal edema - Neurological Exam Neurological exam: Present: alert, oriented X3. Absent: facial droop, speech deficit - Skin Skin exam: Present: dry, intact, warm Internal Medicine: Result - Labs CBC & Chem 7: 04/03/17 03:39 04/03/17 03:39 Labs: Short CBC 04/03/17 Range/Units 03:39 WBC 7.0 (4.3-11.1) K/mcL Hgb 12.4 L (12.9-16.9) g/dL Hct 36.0 L (37.5-50.1) % Plt Count 313 (140-400) K/mcL Neutrophils # 3.8 (1.6-8.9) K/mcL BMP 04/03/17 03:39 Sodium 144 Potassium 3.7 Chloride 115 H Carbon Dioxide 21 BUN 13 Creatinine 0.83 Glucose 93 Calcium 8.3 L - ABG Interpretation ABG results: PT/INR, D-dimer PT 13.6 Seconds (9.4-12.1) H 04/01/17 19:31 Consult Discharge Plan - Plan Referrals: Ivone Roberto MD [Primary Care Provider] - <Eloy Calvert - Last Filed: 04/03/17 19:17> Date of Encounter: 04/03/17 - Assessment and plan (1) Acute and chronic respiratory failure with hypoxia Current Visit: No Status: Acute (2) Pericarditis Current Visit: Yes Status: Acute Qualifiers: Pericarditis type: infectious Infectious pericarditis etiology: unspecified Chronicity: acute Qualified Code(s): I30.1 - Infective pericarditis (3) [place] spotted fever Current Visit: Yes Status: Acute (4) Hypertension Current Visit: No Status: Chronic Qualifiers: Hypertension type: essential hypertension Qualified Code(s): I10 - Essential (primary) hypertension (5) Tobacco abuse Current Visit: Yes Status: Chronic (6) Chronic pain Current Visit: Yes Status: Chronic Qualifiers: Chronic pain type: chronic pain syndrome Qualified Code(s): G89.4 - Chronic pain syndrome - Constitutional Vitals: Temp Pulse Resp BP Pulse Ox 98.2 F 62 17 152/89 96 04/03/17 15:00 04/03/17 15:00 04/03/17 15:00 04/03/17 15:00 04/03/17 15:00 Internal Medicine: Result - Labs CBC & Chem 7: 04/03/17 03:39 04/03/17 03:39 Labs: Short CBC 04/03/17 Range/Units 03:39 WBC 7.0 (4.3-11.1) K/mcL Hgb 12.4 L (12.9-16.9) g/dL Hct 36.0 L (37.5-50.1) % Plt Count 313 (140-400) K/mcL Neutrophils # 3.8 (1.6-8.9) K/mcL BMP 04/03/17 03:39 Sodium 144 Potassium 3.7 Chloride 115 H Carbon Dioxide 21 BUN 13 Creatinine 0.83 Glucose 93 Calcium 8.3 L - ABG Interpretation ABG results: PT/INR, D-dimer PT 13.6 Seconds (9.4-12.1) H 04/01/17 19:31 - Attending Attestation I examined this patient and my medical decision-making was reviewed with the Resident Physician on 04/03/17. I agree with the documented findings, disposition and treatment plan as described except to the extent set forth below. Mr. Gray is currently admitted for acute pericarditis and RMSF. He remains high risk due to persistent chest pain and infectious issues. Mr Gray continues to have chest pain and joint pain. Cephalgia present as well. No fever now. No GI issues. Exam Alert. Mod distress due to pain Mucus membranes dry Heart reg - ? rub in RUSB. Lungs clear Abd soft No edema I/P 1. Pericarditis 2. RMSF Further diagnoses and plan as above.
[2017-04-03] MEDS: traZODone 50 MG TABLET PO SCH (21:56)
[2017-04-04] MEDS: *HR* OxyCODONE/APAP 5/325 TABLET PO PRN ×2 (05:33→09:30)
[2017-04-04] MEDS: Doxycycline 100 MG in 0.9 % Sodium Chloride Mini Bag 100 ML IVPB SCH (05:33)
[2017-04-04 07:14] VITALS: BP 177/88
--- NOTE | 2017-04-04 08:57 | Discharge Summary ---
<Eloy Calvert - Last Filed: 04/04/17 18:48> Date of Encounter: 04/04/17 - Discharge Diagnosis (1) Pericarditis Priority: Primary Status: Acute Qualifiers: Pericarditis type: infectious Infectious pericarditis etiology: unspecified Chronicity: acute Qualified Code(s): I30.1 - Infective pericarditis (2) [place] spotted fever Status: Acute (3) Hypertension Priority: Secondary Status: Chronic Qualifiers: Hypertension type: essential hypertension Qualified Code(s): I10 - Essential (primary) hypertension (4) Tobacco abuse Priority: Secondary Status: Chronic (5) Chronic pain Priority: Secondary Status: Chronic Qualifiers: Chronic pain type: chronic pain syndrome Qualified Code(s): G89.4 - Chronic pain syndrome (6) Acute and chronic respiratory failure with hypoxia Priority: Primary Status: Ruled-out - Discharge Medications Prescriptions: OxyCODONE/APAP 5/325 [Percocet 5/325 MG] 1 each PO Q6HR PRN #12 tablet PRN Reason: Pain Aspirin 325 mg PO BID #60 tablet Colchicine [Colcrys] 0.6 mg PO DAILY #7 tablet Doxycycline 100 mg PO BID #14 capsule Home Medications: Atorvastatin Calcium [Lipitor] 80 mg PO HS 02/14/16 [History] Omeprazole [PriLOSEC] 20 mg PO DAILY 02/14/16 [History] Tiotropium [place] [Spiriva] 1 puff IH DAILY 02/14/16 [History] Trazodone HCl 200 mg PO HS 02/14/16 [History] diazePAM [Valium] 10 mg PO TID PRN 02/14/16 [History] Albuterol Sulfate [Ventolin Hfa] 2 puff IH Q4-6H PRN 03/20/17 [History] Apixaban [Eliquis] 5 mg PO BID 03/20/17 [History] Gabapentin [Neurontin] 1,200 mg PO TID 03/20/17 [History] Lisinopril [Zestril] 20 mg PO DAILY 03/20/17 [History] Nitroglycerin [Nitrostat] 0.4 mg SL Q5M PRN 03/20/17 [History] Tizanidine HCl 4 mg PO TID 03/20/17 [History] Topiramate [Topamax] 25 mg PO BID 03/20/17 [History] cloNIDine HCl [CloNIDine HCl] 0.1 mg PO TID 03/20/17 [History] Fluticasone/Vilanterol [Breo Ellipta 100-25 Mcg INH] 1 each IH DAILY 03/22/17 [ History] Acetaminophen/Butalbital/Caffe [Fioricet] 1 each PO DAILY PRN #4 tablet [Rx] Aspirin 325 mg PO BID #60 tablet 04/04/17 [Rx] Colchicine [Colcrys] 0.6 mg PO DAILY #7 tablet 04/04/17 [Rx] Doxycycline 100 mg PO BID #14 capsule 04/04/17 [Rx] OxyCODONE/APAP 5/325 [Percocet 5/325 MG] 1 each PO Q6HR PRN #12 tablet 04/04/17 [Rx] Allergies/Adverse Reactions: 3 Allergy/AdvReac Type Severity Reaction Status Date / Time ketorolac [From Toradol] Allergy Itching Verified 04/02/17 09:39 Sulfa (Sulfonamide Allergy Itching Verified 04/02/17 09:39 Antibiotics) tramadol Allergy Itching Verified 04/02/17 09:39 Procedures/tests Complete & Pending: Procedures Performed prior 72 hours Category Date Time Status EV limited echocardiogram Stat Y 04/02/17 00:01 Completed Date of admission: 04/01/17 23:25 Primary care physician: Cat Suazo Consults: 04/01/17 23:47 Consult to Cardiology [CONS] Routine Comment: Consulting Provider: Cardiology Lazara Reason for Consult: 52M with bradycardia, ST elevations unchanged from yesterday, negative troponin, history of WPW s/p ablation, CAD/NM s/p stent on eliquis. Call Completed: Yes - Patient Status Disposition: Home, Self-Care Condition: Good - Discharge Instructions Instructions: Doxycycline (By mouth), Oxycodone/Acetaminophen (By mouth), Aspirin (By mouth), Colchicine (By mouth), Chronic Obstructive Pulmonary Disease (DC) Follow [place]: Jag Becerra DO [[place] [facility] [place] [Non-Partnered Physician] - 04/11/17 8:45 am Hospital course: Mr. Gray is a 52 year old male - Time Spent with Patient Total time spent providing and/or coordinating discharge services: 39min - Constitutional Vitals: Temp Pulse Resp BP Pulse Ox 97.5 F L 59 16 177/88 96 04/04/17 07:11 04/04/17 07:11 04/04/17 10:42 04/04/17 07:11 04/04/17 10:42 - Attending Attestation I examined this patient and my medical decision-making was reviewed with the Resident Physician on 04/04/17. I agree with the documented findings, disposition and treatment plan as described except to the extent set forth below. Mr. Gray has been admitted chest pain related to pericarditis presumed due to RMSF. He is now afebrile and vitals stable. He is ready for discharge home. Exam Alert. Comfortable Ambulatory Heart reg - no rub heard today Lungs clear Abd soft Plan D/C home today <Nelli Dawn - Last Filed: 04/04/17 20:52> Date of Encounter: 04/04/17 Time of Encounter: 08:53 - Discharge Diagnosis (1) Pericarditis Priority: Primary Status: Acute Qualifiers: Pericarditis type: infectious Infectious pericarditis etiology: unspecified Chronicity: acute Qualified Code(s): I30.1 - Infective pericarditis (2) [place] spotted fever Priority: Secondary Status: Acute (3) WPW (Ybcky-Gyxpnbrqc-Qmtnp syndrome) Priority: Secondary Status: Chronic (4) Tobacco dependence Priority: Secondary Status: Chronic (5) COPD (chronic obstructive pulmonary disease) Priority: Secondary Status: Chronic Qualifiers: COPD type: unspecified COPD Qualified Code(s): J44.9 - Chronic obstructive pulmonary disease, unspecified Procedures/tests Complete & Pending: Procedures Performed prior 72 hours Category Date Time Status EV limited echocardiogram Stat Y 04/02/17 00:01 Completed Date of admission: 04/01/17 23:25 Primary care physician: Cat Suazo Consults: 04/01/17 23:47 Consult to Cardiology [CONS] Routine Comment: Consulting Provider: Cardiology Lazara Reason for Consult: 52M with bradycardia, ST elevations unchanged from yesterday, negative troponin, history of WPW s/p ablation, CAD/NM s/p stent on eliquis. Call Completed: Yes Discharging clinician: Nelli Dawn Anticipated date of discharge: 04/04/17 - Patient Status Functional capacity at discharge: independent ambulation Overall status at discharge: patient is progressing back to baseline - Diet and Activity Diet: advance to your usual diet Interval History: Patient alternating between feeling well and having pain. He is concerned he will have pain at home once he is discharged. Questions whether he will be discharged with pain pills. Hospital course: Mr. Gray is a 52 year old male admitted to the hospital with chest pain and EKG evidence of pericarditis. Recent labs from [facility] were positive for [place] spotted fever. He was treated with aspirin 325 mg twice daily for his pericarditis and doxycycline for his fever. On the day of discharge he was complaining of multiple body aches that were partially relieved by his pain medication (he alternately stating that his pain is well-controlled with his pain medication and that he is in severe pain). Colchicine was added as a ambulatory prescription to help treat his myalgias/arthralgias. He will follow up outpatient with cardiology. - Time Spent with Patient Total time spent providing and/or coordinating discharge services: - Constitutional Vitals: Temp Pulse Resp BP Pulse Ox 97.5 F L 59 16 177/88 96 04/04/17 07:11 04/04/17 07:11 04/04/17 07:11 04/04/17 07:11 04/04/17 07:11 General appearance: Present: A&O X 3, no acute distress - Head Head exam: Present: atraumatic, normocephalic - Eye Eye exam: Present: PERRL, conjuntiva pink, sclera anicteric Pupils: Present: PERRL - Neck Neck exam general surgery: Present: supple, trachea midline - Respiratory Respiratory exam: Present: CTAB. Absent: accessory muscle use, rales, rhonchi, wheezes - Cardiovascular Cardiovascular exam: Present: RRR, +S1, +S2. Absent: diastolic murmur, gallop, rubs, systolic murmur - GI/Abdominal GI/Abdominal exam: Present: normal bowel sounds, soft, no peritoneal signs. Absent: distended, tenderness - Extremities Exam Extremities exam: Present: warm, radial pulses palpable and symmetrical. Absent : calf tenderness, cyanotic, pedal edema - Neurological Exam Neurological exam: Present: CN II-XII intact, oriented X3, no focal deficits. Absent: pronater drift, facial droop, speech deficit - Skin Skin exam: Present: dry, intact, warm
[2017-04-04] MEDS: diazePAM 10 MG TABLET PO SCH (09:27)
[2017-04-04] MEDS: Gabapentin 400 MG CAPSULE PO SCH (09:27)
[2017-04-04] MEDS: APIXABAN 5 MG TABLET PO SCH (09:27)
[2017-04-04] MEDS: Aspirin 325 MG TABLET PO SCH (09:28)
[2017-04-04] MEDS: Nicotine 21 MG PATCH.TD24 TD SCH (09:28)
[2017-04-04] MEDS: Lisinopril 20 MG TABLET PO SCH (09:28)
[2017-04-04] MEDS: Topiramate 25 MG TABLET PO SCH (09:28)
[2017-04-04] MEDS: Budesonide/Formoterol 160/4.5 MDI IH SCH (10:38)
[2017-04-04] MEDS: Tiotropium 18 MCG inhalation IH SCH (10:38)
== END 2017-04-04 11:56 | disposition home or self-care (01) | DRG 207 ==
LOC: 2NENU 19:17 → EMEROO 19:17 → SUATTDRO 23:25 → 2NENU 23:50
PROVIDERS: ADMIT Internal Medicine; ATTEND Internal Medicine